=== PATIENT | male | born 1945 ===

== ENCOUNTER → 2019-06-02 17:36 | Outpatient (CLI) | payer MEDICARE ==
[2019-06-02 19:14] LABS: BASOPHILS 0.1 % (0-2); HEMATOCRIT 44.1 % (42.0-54.0); HEMOGLOBIN 14.8 g/dL (13.5-17.5); IMMATURE GRANULOCYTES 0.3 % (0-5); LYMPHOCYTES 17.2 % (15-50); MCH 30.7 pg (26.0-34.0); MCHC 33.6 g/dL (31.0-37.0); MCV 91.5 fL (80.0-100.0); MEAN PLATELET VOLUME 9.7 fL (7.4-10.4); MONOCYTES 10.4 % (2-11); PLATELET COUNT 308 10x3/uL (130-400); RBC 4.82 10x6/uL (4.20-6.10); RDW 13.4 % (11.5-14.5); WBC 7.6 10x3/uL (4.8-10.8)
[2019-06-04 11:10] LABS: IMMUNOGLOBULIN A 125 mg/dL (61-437); IMMUNOGLOBULIN G 829 mg/dL (700-1600); IMMUNOGLOBULIN M 84 mg/dL (15-143)
[2019-06-07 12:09] LABS: IMMUNOGLOBULIN E 973 IU/mL (6-495)
== END | disposition home or self-care (01) ==
LOC: D.LABREF 17:36
PROVIDERS: ATTEND Internal Medicine Pulmonary Disease
DX: J45.909 Unspecified asthma, uncomplicated (principal)

== ENCOUNTER → 2019-06-10 11:03 | Outpatient (CLI) | payer MEDICARE | END | disposition home or self-care (01) | LOC: D.RT 11:03 | PROVIDERS: ATTEND Internal Medicine Pulmonary Disease | DX: J45.909 Unspecified asthma, uncomplicated (principal) ==

== ENCOUNTER → 2020-10-11 09:20 | Outpatient (CLI) | payer MEDICARE ==
--- NOTE | ~2020-10-11 | ST ---
PATIENT:JORGE CROWLEY MEDICAL RECORD: [id number] SEX: M LOCATION:[facility] ORDER #: ADMISSION DATE: 10/11/20 AGE OF PATIENT: 75 REFERRING PHYSICIAN: INTERPRETING PHYSICIAN: SURJIT SHAH MD DATE OF SERVICE: 10/11/2020 PROCEDURE: Nuclear stress test. GATED: Normal. Normal wall motion, normal EF, calculated EF of 68%. SPECT IMAGING: SPECT imaging was performed. 1. Short axis view shows a reversible defect from the inferior base down to the mid inferior wall. This was confirmed with horizontal axis with a reversible defect from the inferior base down to mid inferior wall. 2. Horizontal axis: Horizontal axis shows good uptake along the lateral wall and septum. FINAL IMPRESSION: 1. Normal gated, normal wall motion, normal ejection fraction 68%. 2. Abnormal SPECT imaging. Reversible defect extending from the inferior base down to the mid inferior wall. Defect severity is moderate. Defect size is medium. FINAL IMPRESSION: This gentleman with new onset of anginal symptomatology. This scan is certainly worrisome for new onset of ischemic heart disease. Consider diagnostic angiography if clinically indicated. TRANSINT:[id number] Voice Confirmation ID: [id number] DOCUMENT ID: [id number] SURJIT SHAH MD CC: [id number] DICTATION DATE: 10/12/20 1252 DIVING BOARD ASSEMBLER: 10/13/20 0125 DEP CLI 10/11/20 [id number] [place] [address]
== END | disposition home or self-care (01) ==
LOC: D.HCCARDIO 09:20 → D.HCCECHO 11:30
PROVIDERS: ATTEND Internal Medicine Interventional Cardiology
DX: I20.9 Angina pectoris, unspecified (principal); R06.00 Dyspnea, unspecified

== ENCOUNTER 2020-10-25 11:05 | Day surgery (SDC) | payer MEDICARE ==
[~2020-10-25] VITALS: Ht 175.3 cm; Wt 99.5 kg
--- NOTE | ~2020-10-25 | HEMODYNAMI ---
PATIENT:JORGE CROWLEY MEDICAL RECORD: [id number] : 41 LOCATION:D.CAT ADMISSION DATE: 10/25/20 Generatedon:114:53 Patient name: JORGE CROWLEY Patient #: [id number] SSN: [id number] : 1945 Date of study: 10/25/2020 Page: Of Hemodynamic Procedure Report Patient Data Patient Demographics Procedure consent was obtained First Name: JORGE Gender: Male Last Name: KEO : 1945 [facility] Initial: RUDDY Age: 75 year(s) Patient #: [id number] Race: SSN: [id number] Additional ID: [id number] Contact details [address]: [address] [place] [address] State: [place] City: [place] Zip code: [address] Past Medical History Performed procedures and imaging results Date Procedure Procedure Results Comments 10/11/2020 Stress testing Positive->Intermediate with SPECT MPI risk Allergies: No known allergies Admission Admission Data Admission Date: 10/25/2020 Admission Time: 11:05 Arrival Date: 10/25/2020 Arrival Time: 0:00 Admit Source: Other Insurance Payor: Medicare [facility] #: [id number] Height (in.): 69 BSA: 2.15 (m2) Height (cm.): 175.26 BMI: 32.41 (kg/m2) Weight (lbs.): 219.45 Weight (kg.): 99.54 Lab Results Lab Result Date: 10/25/2020 Lab Result Time: 0:00 Biochemistry Name Units Result Min Max BUN mg/dl 14 --(--*-)-- 7 18 Creatinine mg/dl 1 --(--*-)-- 0.6 1.3 eGFR ml/min 76.81875 *-(----)-- 90 120 NONAFRICAN CBC Name Units Result Min Max Hematocrit % 39.6 -*(----)-- 42 54 Hemoglobin g/dl 12.5 *-(----)-- 13.5 17.5 Procedure Procedure Types Cath Procedure Diagnostic Procedure [facility] w/Coronaries Aortic Root Angiography Sedation Charges Moderate Sedation 25-39 minutes Procedure Description Procedure Date Procedure Date: 10/25/2020 Procedure Start Time: 14:27 Procedure End Time: 14:51 Procedure Staff Name Function Ulices Coto MD Performing Physician Temi Connelly RT Monitor Olivia Ng RT Scrub Bolivar Salter RN Nurse Procedure Data Cath Procedure Fluoroscopy Diagnostic fluoroscopy Total fluoroscopy Time: 5.7 time: 5.7 min min Diagnostic fluoroscopy Total fluoroscopy dose: dose: 1263 mGy 1263 mGy Contrast Material Contrast Material Type Amount (ml) Isovue 300 214 Entry Location Entry Primary Successful Side Size Upsize Upsize Entry Closure Moreira ccessful Closure Location (Fr) 1 (Fr) 2 (Fr) Remarks Device Remarks Radial Right 6 Fr Mechanical artery Short Compression Estimated blood loss: 5 ml Diagnostic catheters Device Type Used For End Catheter Placement DIAGNOSTIC [place] 110cm 5 Multi-vessel Fr catheter ([id number]) Angiography DIAGNOSTIC Yared 110cm Left Coronary 5Fr catheter (857255) Angiography DIAGNOSTIC Pigtail 5Fr LV Angiography catheter ([id number]) Procedure Complications No complications Procedure Medications Medication Administration Route Dosage Oxygen etCO2 Nasal cannula 2 l/min Lidocaine 2% added to field 20 0.9% NaCl I.V. 100 ml/hr Heparin Flush Bag added to field 2 bags (1000units/500ml NS) Radial Cocktail added to field 1 syringe (Verapamil 2mg/Nitro 400mcg/Heparin 1500units) Versed I.V. 2 mg Fentanyl I.V. 50 mcg Versed I.V. 1 mg Fentanyl I.V. 50 mcg Versed I.V. 1 mg Fentanyl I.V. 50 mcg Hemodynamics Rest BSA: 2.15 (m2) HGB: 12.5 (g/dl) O2 Consumption: Estimated: 240.94 (ml/min) O2 Co nsumption indexed: Estimated:112.07 (ml/min/m) Heart Rate: 63 (bpm) Pressure Samples Time Site Value (mmHg) Purpose Heart Use Rate(bpm) 14:33 LV 111/6,14 Snapshot 85 14:34 AO 113/68(86) Pullback 68 14:34 LV 110/20,26 Pullback 68 Gradients Valve Time Site 1 Site 2 Mean SEP/DFP Peak To Heart Use (mmHg) (sec/min) Peak Rate (mmHg) (bpm) Aortic 14:34 LV AO 0 5 0 68 110/20,26 113/68(86) Calculations Valve P-P Mean Valve Index Valve Source Name Gradient Area Flow (cm2) Aortic 0 0 0 0 Snapshots Pre Cath Intra NCS Post Cath Vital Signs Time Heart Resp SPO2 etCO2 NIBP (mmHg) Rhythm Pain Sedation Rate (ipm) (%) (mmHg) Status Level (bpm) 14:01:26 60 17 98 0 133/80(114) NSR 0 (11) 10(A) , No pain 14:05:44 61 11 97 0 132/81(114) NSR 0 (11) 10(A) , No pain 14:09:58 61 26 96 37.9 133/78(93) NSR 0 (11) 10(A) , No pain 14:15:06 66 17 94 0 113/79(105) NSR 0 (11) 10(A) , No pain 14:19:19 65 18 97 0 133/74(114) NSR 0 (11) 10(A) , No pain 14:24:24 63 17 97 43.2 126/74(119) NSR 0 (11) 9(A) , No pain 14:28:36 65 16 94 0 100/75(95) NSR 0 (11) 9(A) , No pain 14:33:35 132 13 96 41.7 125/67(102) NSR 0 (11) 9(A) , No pain 14:37:41 71 15 97 0 100/76(85) NSR 0 (11) 9(A) , No pain 14:41:47 67 12 97 0 119/82(110) NSR 0 (11) 10(A) , No pain 14:46:03 65 14 97 0 126/71(103) NSR 0 (11) 10(A) , No pain 14:50:27 69 10 96 24.2 94/69(77) NSR 0 (11) 10(A) , No pain Medications Time Medication Route Dose Verified Delivered Reason Notes Effectiveness by by 14:00:38 Oxygen etCO2 2 l/min Ulices Buffie for local Nasal Nnamdi Salter RN anesthetic cannula 14:00:55 Lidocaine 2% added 20ml Ulices Ulices for local to vial Nnamdi Coto MD anesthetic field 14:01:29 0.9% NaCl I.V. 100 Ulices Buffie Per ml/hr Nnamdi Salter RN physician 14:02:58 Heparin Flush added 2 bags Ulices Buffie used for Bag to Nnamdi Salter RN procedure (1000units/500ml field NS) 14:03:12 Radial Cocktail added 1 Ulices Ulices for (Verapamil to syringe Nnamdi Coto MD vasodilation 2mg/Nitro field 400mcg/Heparin 1500units) 14:17:19 Versed I.V. 2 mg Ulices Buffie for sedation Nnamdi Salter RN 14:17:25 Fentanyl I.V. 50 mcg Ulices Buffie for sedation Nnamdi Salter RN 14:24:33 Versed I.V. 1 mg Ulices Buffie for sedation Nnamdi Salter RN 14:24:37 Fentanyl I.V. 50 mcg Ulices Buffie for sedation Nnamdi Salter RN 14:28:36 Versed I.V. 1 mg Ulices Buffie for sedation Nnamdi Salter RN 14:28:39 Fentanyl I.V. 50 mcg Ulices Buffie for sedation Nnamdi Salter RN Procedure Log Time Note 13:10:28 Bolivar Salter RN sent for patient. Start room use. 13:10:37 Risk of blood transfusion: 0.3 13:14:44 Informed consent obtained and on chart 13:15:01 Diagnostic Cath Status : Elective 13:15:16 Arrival Date: 10/25/2020 12:00:00 AM 13:15:17 Admit Source: Other 13:15:20 Insurance Payor : Medicare 13:17:10 Patient Height : 69 inches 13:17:15 Patient Weight : 219.45 lbs 13:18:18 Patient allergic to No known allergies 13:19:42 Lab Result : BUN 14 mg/dl 13:19:42 Lab Result : eGFR NONAFRICAN 76.92864 ml/min 13:19:42 Lab Result : Hemoglobin 12.5 g/dl 13:19:42 Lab Result : Creatinine 1 mg/dl 13:19:42 Lab Result : Hematocrit 39.6 % 13:20:16 ACC Patient presents with Stable Angina CCS Anginal Class 2--Slight limitation of ordinary activity. 13:20:20 Procedure Status Elective Heart Cath (OP). 13:20:22 Time tracking: Regular hours (M-F 7:00 - 5:00) 13:20:28 Plan of Care:Hemodynamics will remain stable., Cardiac rhythm will remain stable., Comfort level will be maintained., Respiratory function will remain adequate., Patient/ family verbilizes understanding of procedure., Procedure tolerated without complication., Recovers from procedure without complications.. 13:20:36 H&P Date Dictated: 10/04/2020 Within 30 days and on chart.. 13:20:37 Pre-procedure instructions explained to patient. 13:20:37 Pre-op teaching completed and patient verbalized understanding. 13:20:39 Family unavailable. 13:20:40 Patient NPO since Midnight. 13:20:45 Lab results completed and on chart. 13:21:02 Stress Test: yes; abnormal INFERIOR 13:21:03 Alarms reviewed by R. N. 13:21:04 Sharps counted by scrub and verified by R.N. 14:00:17 Vital chart was started 14:00:38 Oxygen 2 l/min etCO2 Nasal cannula was administered by Bolivar Salter RN; for local anesthetic; Verbal order read back and verified. 14:00:55 Lidocaine 2% 20ml vial added to field was administered by Ulices Coto MD; for local anesthetic; Verbal order read back and verified. 14:01:29 0.9% NaCl 100 ml/hr I.V. was administered by Bolivar Salter RN; Per physician; Verbal order read back and verified. 14:02:58 Heparin Flush Bag (1000units/500ml NS) 2 bags added to field was administered by Bolivar Salter RN; used for procedure; Verbal order read back and verified. 14:03:12 Radial Cocktail (Verapamil 2mg/Nitro 400mcg/Heparin 1500units) 1 syringe added to field was administered by Ulices Coto MD; for vasodilation; Verbal order read back and verified. 14:04:16 Patient received from Pre/Post Procedure Room to [facility] 1 Alert and oriented. Tansferred to table in Supine position. 14:04:17 Warm blankets applied, and hortencia hugger turned on for patient comfort. 14:04:18 Correct patient and procedure confirmed by team. 14:04:19 ECG and BP/O2 sat monitors applied to patient. 14:04:20 Baseline sample Acquired. 14:04:24 Rhythm: sinus rhythm 14:04:26 Full Disclosure recording started 14:04:29 Is the patient allergic to Iodine/contrast media? No. 14:04:31 Was the patient premedicated? Yes 14:04:33 Is patient on blood thinner?No 14:04:35 Patient diabetic? No. 14:04:38 Previous problem with sedation/anesthesia? No ? 14:04:40 Snore? Yes 14:04:41 Sleep apnea? No 14:04:42 Deviated septum? No 14:04:43 Opens mouth fully? Yes 14:04:44 Sticks out tongue? Yes 14:04:52 Airway obstruction? Yes COPD ASTHMA 14:04:57 Dentures? Yes OUT 14:05:01 Pre procedure: right dorsailis pedis pulse 2+ Normal; easily identifiable; not easily obliterated 14:05:04 Pre procedure: left dorsailis pedis pulse 2+ Normal; easily identifiable; not easily obliterated 14:05:07 Modified Bhavesh's test Radial < 7 seconds 14:05:09 Patient pain scale 0/10 ?. 14:05:17 IV patent on arrival in left forearm with 0.9% NaCl at [facility]. 14:06:34 Risk of Mortality: 0.1 14:06:43 Risk of MAUREEN: 1.5 14:06:49 Right Radial & Right Groin area was prepped with chlora-prep and draped in sterile fashion 14:09:25 Physician arrived 14:09:25 --------ALL STOP TIME OUT------ 14:09:26 Final Timeout: patient, procedure, and site verified with staff and physician. All members of the team are in agreement. 14:09:27 Right Radial & Right Groin site verified by team. 14:09:31 Fire Safety Assessment: A--An alcohol-based skin anteseptic being used preoperatively., C--Open oxygen or nitrous oxide is being used., D--An ESU, laser, or fiber-optic light is being used. 14:09:34 Physical assessment completed. ASA score P 2 - A patient with mild systemic disease as per Ulices Coto MD. 14:09:51 2) 60-89 Mildly reduced kidney function, and other findings (as for stage 1) point to kidney disease. 14:10:11 Maximum allowable contrast dose (3.7 X eGFR X 0.75)214 ml. 14:10:16 Sedation plan: IV Moderate Sedation Medication:Versed, Fentanyl 14:17:19 Versed 2 mg I.V. was administered by Bolivar Salter RN; for sedation; Verbal order read back and verified. 14:17:25 Fentanyl 50 mcg I.V. was administered by Bolivar Salter RN; for sedation; Verbal order read back and verified. 14:21:12 Use device set Radial Dx or PCI 14:21:12 ACIST Syringe (94581) opened to sterile field. 14:21:13 Medline Cath Pack ([id number]) opened to sterile field. 14:21:13 Bag Decanter (2002S) opened to sterile field. 14:21:14 ACIST Hand Control (35126) opened to sterile field. 14:21:14 ACIST Manifold (58943) opened to sterile field. 14:21:14 Tegaderm 4 x 4 (1626W) opened to sterile field. 14:21:16 MBrace Wrist Support (989886412) opened to sterile field. 14:21:17 NEEDLE Cook 21G 4cm Radial (J90209) opened to sterile field. 14:21:19 EMERALD Guide Wire (438-694) opened to sterile field. 14:21:19 SHEATH 6FR RAIN (4649701) opened to sterile field. 14:24:33 Versed 1 mg I.V. was administered by Bolivar Salter RN; for sedation; Verbal order read back and verified. 14:24:37 Fentanyl 50 mcg I.V. was administered by Bolivar Salter RN; for sedation; Verbal order read back and verified. 14:27:52 Procedure started. 14:27:57 Local anesthetic to right radial artery with Lidocaine 2% by Ulices Coto MD.INITIAL ACCESS ONLY 14:28:36 Versed 1 mg I.V. was administered by Bolivar Salter RN; for sedation; Verbal order read back and verified. 14:28:39 Fentanyl 50 mcg I.V. was administered by Bolivar Salter RN; for sedation; Verbal order read back and verified. 14:31:10 A 6 Fr Short sheath was inserted into the Right Radial artery 14:31:17 A DIAGNOSTIC [place] 110cm 5 Fr catheter (889522) was advanced over the wire and used for Multi-vessel Angiography. 14:34:35 LV hemodynamics recorded. 14:34:36 LV gram done using ARITA 14:34:38 Injector settings: Ml/sec: 5, Volume: 15, 14:34:43 EF : 60 % 14:34:48 LCA angiography performed. 14:34:52 Injector settings: Ml/sec: 3, Volume: 6, 14:37:49 RCA angiography performed. 14:37:53 Injector settings: Ml/sec: 3, Volume: 6, 14:38:56 Catheter removed. 14:40:19 A DIAGNOSTIC [place]ared 110cm 5Fr catheter (693828) was advanced over the wire and used for Left Coronary Angiography. 14:42:15 LCA angiography performed. 14:42:19 Injector settings: Ml/sec: 3, Volume: 6, 14:43:50 Catheter removed. 14:44:09 A DIAGNOSTIC Pigtail 5Fr catheter ([id number]) was advanced over the wire and used for LV Angiography. 14:45:54 Aortic Root visualized 14:45:58 Injector settings: Ml/sec: 10, Volume: 20, 14:48:16 Catheter removed. 14:48:33 Sheath removed intact; hemostasis achieved with Mechanical Compression to the Right Radial artery. 14:49:15 Procedure ended.(Physican Out) 14:49:45 Fluoroscopy time 05.70 minutes. 14:49:49 Fluoroscopy dose: 1263 mGy 14:49:49 Flurop Dose total: 1263 14:49:55 Dose Area Product 53670 mGy/cm. 14:49:59 Contrast amount:Isovue 300 214ml. 14:50:01 Maximum allowable dose exceeded? No. 14:50:02 Sharps counted by scrub and verified by R.N. 14:50:05 Cleghorn band inflated with 13cc of air. 14:50:07 Insertion/operative site no bleeding no hematoma. 14:50:13 Post right radial artery:stable 14:50:15 Post Procedure Pulses reassessed and unchanged 14:50:17 Post procedure rhythm: unchanged. 14:50:20 Estimated blood loss: 5 ml 14:50:22 Post procedure instruction explained to patient.Patient verbalizes understanding. 14:50:22 Patient needs reinforcement of post procedure teaching. 14:51:00 Procedure type changed to Cath procedure, Diagnostic procedure, LHC, LHC w/Coronaries, Aortic Root Angiography, Sedation Charges, Moderate Sedation 25-39 minutes 14:51:02 Procedure and supply charges have been captured, reviewed, submitted and are correct. 14:51:06 Procedure Complication : No complications 14:51:08 Vital chart was stopped 14:51:13 [facility] Findings: MVD- CABG consult 14:51:16 Operative report dictated upon procedure completion. 14:51:16 See physician's report for complete and final results. 14:51:20 Report given to Pre/Post Procedure Room. 14:51:23 Patient transfered to Pre/Post Procedure Room with Stretcher. 14:51:25 Procedure ended. 14:51:25 Full Disclosure recording stopped 14:51:29 End room use (Document Last) 14:52:12 ZEPHYR LARGE TR BAND (746803) opened to sterile field. 14:52:37 ZEPHYR REGULAR TR BAND (077545) opened to sterile field. Device Usage Item Name Manufacture Quantity Catalog Hospital Part Current Minima l Lot# / Number Charge Number Stock Stock Serial# Code ACIST Acist 1 79501 860911 080538 [id number] 20 Syringe Medical (87380) Systems Inc Medline Medline 1 [id number] 809100 35020 803602 5 Cath Pack ([id number]) Bag Microtek 1 2001S 792489 01227 373918 5 Decanter Medical Inc. () ACIST Hand Acist 1 29648 587458 537868 345795 5 Control Medical (37782) Systems Inc ACIST Acist 1 94553 484033 360955 812268 5 Manifold Medical (83021) Systems Inc Tegaderm 4 3M 1 1626W 783736 042409 493847 5 x 4 (1626W) MBrace Advanced 1 140-0250-00 964342 76637 750496 5 Wrist Vascular Support Dynamics ([id number]) NEEDLE Cook Cook Medical 1 F43287 859553 032904 304920 5 21G 4cm Radial (I54103) EMERALD Cardinal 1 502-455 263179 859092 799237 5 Guide Wire [facility] (502-455) SHEATH 6FR Cardinal [address] 9825[address] 218625 69[address]70 149[address] 5 [facility] (2759623) DIAGNOSTIC Terumo 1 40-5013 312178 482883 019522 5 [place] 110cm 5 Fr catheter (098148) DIAGNOSTIC Terumo 1 40-2739 720032 243088 743339 5 Yared 110cm 5Fr catheter (385394) DIAGNOSTIC Cardinal 1 [id number] 623542 810783 548173 5 Pigtail 5Fr Health catheter (131157A) ZEPHYR Cardinal 1 642563 251780 9309634 255930 5 LARGE TR Health BAND (474816) ZEPHYR Cardinal 1 486778 844238 6731200 269922 5 REGULAR TR Health BAND (271581) Signature Audit [place] Stage Time Signature Unsigned Intra-Procedure 10/25/2020 Temi Connelly 2:52:37 PM RT(R) Intra-Procedure 10/25/2020 Bolivar Salter RN 2:53:16 PM Intra-Procedure 10/25/2020 Ulices Coto MD 2:53:43 PM [facility] [address] [place] [address]
[2020-10-25 12:33] LABS: BASOPHILS 0.1 % (0-2); EOSINOPHILS 3.9 % (0-7); HEMATOCRIT 39.6 % (42.0-54.0); HEMOGLOBIN 12.5 g/dL (13.5-17.5); IMMATURE GRANULOCYTES 0.3 % (0-5); LYMPHOCYTE ABS# 1.43 10x3/uL (1.32-3.57); LYMPHOCYTES 18.5 % (15-50); MCH 24.5 pg (26.0-34.0); MCHC 31.6 g/dL (31.0-37.0); MCV 77.6 fL (80.0-100.0); MONOCYTES 8.2 % (2-11); NEUTROPHIL ABS# 5.33 10x3/uL (1.78-5.38); PLATELET COUNT 308 10x3/uL (130-400); WBC 7.7 10x3/uL (4.8-10.8)
[2020-10-25 12:37] VITALS: BP 177/74; Ht 175.3 cm; Wt 99.5 kg
[2020-10-25] MEDS ORDERED: SINGULAIR10 MG PO (12:44)
[2020-10-25] MEDS ORDERED: VENTOLIN HFA [SP8 GM INH (12:44)
[2020-10-25] MEDS ORDERED: TRELEGY ELLIPT1 EACH INH (12:44)
[2020-10-25] MEDS ORDERED: OMEPRAZOLE20 M1 PO (12:45)
[2020-10-25] MEDS ORDERED: FLUTICASONE PRO16 GM NASAL (12:45)
[2020-10-25] MEDS ORDERED: VASOTEC10 MG PO (12:45)
[2020-10-25] MEDS ORDERED: ZOCOR10 MG PO (12:46)
[2020-10-25] MEDS ORDERED: VITAMIN D-32000 UNIT PO (12:47)
[2020-10-25] MEDS ORDERED: ZINC-220220 MG PO (12:47)
[2020-10-25] MEDS ORDERED: VITAMIN C500 M1 PO (12:47)
[2020-10-25 13:04] LABS: ALT (SGPT) 21 U/L (10-68); CALC OSMOLALITY 279 mosm/kg (275-300); CALCIUM 9.3 mg/dL (8.5-10.1); CARBON DIOXIDE 24.1 mmol/L (21.0-32.0); CHLORIDE - SERUM 106 mmol/L (98-107); CHOL - HDL RATIO 2.7 ratio (2.3-4.9); CHOLESTEROL, TOTAL 134 mg/dL (0-200); GLUCOSE 93 mg/dL (74-106); HDL CHOLESTEROL 50 mg/dL (32-96); LDL CHOLESTEROL 66 mg/dL (0-100); LDL-HDL RATIO 1.3 ratio (1.5-3.5); POTASSIUM - SERUM 4.2 mmol/L (3.5-5.1); SODIUM 140 mmol/L (136-145); TRIGLYCERIDE 91 mg/dL (30-200); UREA NITROGEN 14 mg/dL (7-18); eGFR NON AFRICAN AMERICAN 77 mL/min (90-120)
--- NOTE | 2020-10-25 15:04 | NUR ---
ARRIVES TO ROOM 4 VIA STRETCHER S/P HEART CATH. SEE COMMERCIAL SALES REPRESENTATIVE. MONITORS PLACED AND ALARMS ON. DENIES PAIN OR NEEDS, UPDATE GIVEN ON PLAN OF CARE TO PT AND SPOUSE, IV INFUSING PER ORDERS, CALL LIGHT WITHIN REACH.
--- NOTE | 2020-10-25 15:19 | NUR ---
EYES CLOSED AROUSES EASILY, VSS, SR, RIGHT WRIST WITH ZBAND IN PLACE NO OOZING OR BLEEDING NOTED, NO PALPABLE HEMATOMA, BRACHIAL AND RADIAL PULSE PALPABLE, CAP REFILL WNL, DENIES PAIN OR NEEDS, IV INFUSING PER ORDERS, SPOUSE AT BEDSIDE, CALL LIGHT WITHIN REACH, NO BATHROOM NEEDS AT PRESENT
--- NOTE | 2020-10-25 15:34 | NUR ---
SEMI FOWLERS POSITION, VSS, SR, RIGHT WRIST STABLE WITH ZBAND IN PLACE NO BLEEDING OR OOZING NOTED , NO PALPABLE HEMATOMA, BRACHIAL AND RADIAL PULSE PALPABLE, CAP REFILL WNL , MOVES ALL DIGITS, DENIES PAIN OR NEEDS, PO FLUIDS AND SANDWICH BOX GIVEN, SPOUSE AT BEDSIDE, IV INFUSING PER ORDERS, CALL LIGHT WITHIN REACH
--- NOTE | 2020-10-25 15:49 | NUR ---
SITTING UP VISITING WITH SPOUSE, VSS, SR, RIGHT WRIST STABLE ZBAND IN PLACE, NO OOZING OR BLEEDING NOTED, RADIAL PULSE PALPABLE, CAP REFILL WNL, IV INFUSING PER ORDERS, DENIES PAIN OR NEEDS, CALL LIGHT WITHIN REACH , NO BATHROOM NEEDS
--- NOTE | 2020-10-25 16:00 | NUR ---
3CC AIR REMOVED FROM ZBAND NO BLEEDING OR OOZING NOTED, NO PALPABLE HEMATOMA, RADIAL PULSE PALPABLE, CAP REFILL WNL, MOVES DIGITS, DENIES PAIN OR NEEDS
--- NOTE | 2020-10-25 16:15 | NUR ---
DR ROY TO BEDSIDE TO REVIEW FINDING WITH PT AND SPOUSE. NO NEW ORDERS RECIEVED.
--- NOTE | 2020-10-25 16:45 | NUR ---
PT RESTING QUIETLY, VSS, SR, SATS 98% RA, DENIES PAIN OR NEEDS, RIGHT WRIST WITH AIR REMOVED FROM ZBAND, NO OOZING OR BLEEDING , RADIAL AND BRACHIAL PULSE PALPABLE, CAP REFILL WNL, MOVES ALL DIGITS, DISCHARGE TEACHING WITH PT AND SPOUSE COMPLETED PT AND SPOUSE VERBALIZED UNDERSTANDING, CALL LIGHT WITHIN REACH. DENIES BATHROOM NEEDS
--- NOTE | 2020-10-25 17:00 | NUR ---
IV REMOVED FROM LT FOREARM CATHETER INTACT 2X2 DRESSING APPLIED, PT AMBULATES TO BATHROOM VOIDS WITHOUT DIFFICULTY. OPSITE PLACED TO RIGHT WRIST, NO BLEEDING OR OOZING NOTED, RADIAL PULSE PALPABLE, CAP REFILL WNL , MOVES ALL DIGITS, DENIES PAIN OR NEEDS. QUESTIONS AND CONCERNS ADDRESSED. VSS, SR PER MONITORS.
--- NOTE | 2020-10-25 17:20 | NUR ---
PT DISCHARGED PER ORDERS, TAKEN TO FAMILY CAR VIA WHEELCHAIR, PT HAS NO PAIN OR NEEDS AT TIME OF DISCHARGE
== END 2020-10-25 17:20 | disposition home or self-care (01) ==
LOC: D.CATH 11:05
PROVIDERS: ATTEND Internal Medicine Cardiovascular Disease
DX: R94.39 Abnormal result of other cardiovascular function study (principal); I20.9 Angina pectoris, unspecified; R07.9 Chest pain, unspecified; R06.00 Dyspnea, unspecified

== ENCOUNTER 2020-11-03 05:03 | Inpatient (IN) | payer MEDICARE ==
[2020-11-01 11:03] LABS: BASOPHILS 0.1 % (0-2); EOSINOPHILS 4.9 % (0-7); HEMATOCRIT 39.6 % (42.0-54.0); HEMOGLOBIN 12.3 g/dL (13.5-17.5); IMMATURE GRANULOCYTES 0.1 % (0-5); LYMPHOCYTE ABS# 1.15 10x3/uL (1.32-3.57); LYMPHOCYTES 14.2 % (15-50); MCH 24.4 pg (26.0-34.0); MCHC 31.1 g/dL (31.0-37.0); MCV 78.4 fL (80.0-100.0); MEAN PLATELET VOLUME 9.9 fL (7.4-10.4); MONOCYTES 8.9 % (2-11); NEUTROPHIL ABS# 5.82 10x3/uL (1.78-5.38); NEUTROPHILS 71.8 % (40-80); PLATELET COUNT 319 10x3/uL (130-400); RBC 5.05 10x6/uL (4.20-6.10); RDW 15.9 % (11.5-14.5); WBC 8.1 10x3/uL (4.8-10.8)
[2020-11-01 11:05] LABS: INR 1.08 (0.85-1.17); PROTIME 12.9 SECONDS (11.6-15.0)
[2020-11-01 11:19] LABS: ALBUMIN 3.8 g/dL (3.4-5.0); ALKALINE PHOSPHATASE 85 U/L (30-120); ALT (SGPT) 21 U/L (10-68); BILIRUBIN - TOTAL 0.55 mg/dL (0.2-1.3); CALC OSMOLALITY 277 mosm/kg (275-300); CALCIUM 9.1 mg/dL (8.5-10.1); CARBON DIOXIDE 27.9 mmol/L (21.0-32.0); CHLORIDE - SERUM 104 mmol/L (98-107); CHOLESTEROL, TOTAL 123 mg/dL (0-200); GLUCOSE 96 mg/dL (74-106); PHOSPHOROUS 3.9 mg/dL (2.5-4.9); PRO BNP 64 pg/mL (0-450); PROTEIN - SERUM 7.4 g/dL (6.4-8.2); SODIUM 139 mmol/L (136-145); T4 THYROXIN - FREE 0.83 ng/dL (0.76-1.46); UREA NITROGEN 12 mg/dL (7-18); URIC ACID 6.1 mg/dL (2.6-7.2); eGFR NON AFRICAN AMERICAN 77 mL/min (90-120)
[2020-11-01 12:37] LABS: BILIRUBIN NEGATIVE (NEGATIVE); KETONE NEGATIVE (NEGATIVE); NITRITE NEGATIVE (NEGATIVE); UROBILINOGEN NORMAL mg/dL (< 2)
[2020-11-03] VITALS (24 sets, daily range): BP systolic 92–147; BP diastolic 39–68; BMI 32.5; BMI 35.0
[~2020-11-03] VITALS: Ht 175.3 cm; Wt 102.8 kg
[~2020-11-03 05:03] MED LIST: BAYER CHEWABLE81 MG PO; FISH OIL 1,0001 CA1 PO; FLUTICASONE PRO16 GM NASAL; OMEPRAZOLE20 M1 PO; SINGULAIR10 MG PO; TRELEGY ELLIPT1 EACH INH; VASOTEC10 MG PO; VENTOLIN HFA [SP8 GM INH; VITAMIN C500 M1 PO; VITAMIN D-32000 UNIT PO; VITAMIN D325 MC1 PO; ZINC-220220 MG PO; ZOCOR10 MG PO
[2020-11-03] MEDS ORDERED: ZINC50 MG (05:24)
--- NOTE | 2020-11-03 07:48 | NUR ---
CVL AND ARTERIAL LINE PLACED BY ANESTHESIA, YOSEF.
[2020-11-03 08:09] LABS: APTT 44.7 SECONDS (22.8-39.4); INR 1.25 (0.85-1.17); PROTIME 14.6 SECONDS (11.6-15.0)
--- NOTE | 2020-11-03 15:30 | NUR ---
UP TO CHAIR WITHOUT DIFFICULTY.
--- NOTE | 2020-11-03 15:34 | OP ---
PATIENT NAME: JORGE CROWLEY MEDICAL RECORD: [id number] :41 LOCATION:[facility] D.CV01 ADMISSION DATE:11/03/20 SURGEON: SEAN FARRIS MD DATE OF OPERATION: 11/03/2020 SURGEON: Sean Farris MD PROCEDURE: Right carotid endarterectomy. PREOPERATIVE DIAGNOSES: Coronary artery disease, bilateral carotid stenosis. POSTOPERATIVE DIAGNOSES: Coronary artery disease, bilateral carotid stenosis. ANESTHESIA: General endotracheal anesthesia. ESTIMATED BLOOD LOSS: 50 mL. COMPLICATIONS: None. SPECIMENS: Plaque. CONDITION: Stable. DISPOSITION: CV ICU. OPERATIVE FINDINGS: 1. Discrete severely calcified plaque in the carotid bulb, proximal internal carotid and extending up the external carotid, which was a large vessel. The plaque feathered well distally and the arteriotomy was closed with a CorMatrix patch closure. 2. Neurologically intact to the ICU, no evidence of coronary ischemia in the perioperative period. INDICATION: Severe right and left carotid artery stenosis with severe coronary artery disease. PROCEDURE IN DETAIL: The patient was brought to the operative suite. General anesthesia was obtained. The patient was prepped and draped. An oblique incision was made to the right neck, taken down through the subcutaneous tissue. Large facial venous branch were divided between ligatures and suture ligatures. The common carotid artery was dissected out and encircled. The external carotid and thyroid branches were encircled with vessel loops. The hypoglossal nerve was identified and kept out of harm's way. Distal internal carotid was dissected out. Heparin was given. After the heparin had circulated, back bleeding on the internal carotid was controlled with a bulldog clamp. Backbleeding on the external carotid and thyroid branch were controlled with vessel loops and inflow was controlled with a vascular clamp. EEG and cerebral oximetry remained normal and after 2 minutes arteriotomy was made in the common carotid artery and taken out through the region of dense calcification into a relatively normal region of internal carotid. The plaque was divided in the common carotid artery. Eversion endarterectomy of the external carotid was performed and the plaque feathered well distally. Thorough irrigation was undertaken. All bits of loose debris were removed. The patch was fashioned to the appropriate size and sutured along the edge of the arteriotomy. Prior to completing the anastomosis, backbleeding was allowed from all 3 major vessels OPERATIVE REPORT [id number] BLACK,JORGE RUDDY and the endarterectomy bed was again flushed. Anastomosis was completed and flow was restored, first to the external carotid and then to the internal carotid. A 2-3 patch sutures for hemostasis were used. Protamine was given. Thorough antibiotic irrigation was performed. A drain was placed through a separate stab wound. Neck was closed in 3 layers including Dermabond on the skin. Anesthesia was reversed. The patient neurologically intact to the ICU. TRANSINT:[id number] Voice Confirmation ID: [id number] DOCUMENT ID: [id number] SEAN FARRIS MD at 1534 CC: ARABELLA ROY M.D. and ULZMA DELVALLE [id number] DICTATION DATE: 11/03/20 1022 WWE WRESTLER: 11/03/20 1348 ADM IN [facility] [address] [place] [address]
[2020-11-04] VITALS (25 sets, daily range): BP systolic 102–176; BP diastolic 43–77
[2020-11-04 05:14] LABS: BASOPHILS 0.1 % (0-2); EOSINOPHILS 2.5 % (0-7); HEMATOCRIT 31.4 % (42.0-54.0); HEMOGLOBIN 9.8 g/dL (13.5-17.5); IMMATURE GRANULOCYTES 0.1 % (0-5); LYMPHOCYTE ABS# 0.92 10x3/uL (1.32-3.57); MCH 24.6 pg (26.0-34.0); MCHC 31.2 g/dL (31.0-37.0); MCV 78.7 fL (80.0-100.0); MEAN PLATELET VOLUME 9.7 fL (7.4-10.4); MONOCYTES 11.4 % (2-11); NEUTROPHIL ABS# 6.23 10x3/uL (1.78-5.38); NEUTROPHILS 74.9 % (40-80); RBC 3.99 10x6/uL (4.20-6.10); RDW 16.1 % (11.5-14.5); WBC 8.3 10x3/uL (4.8-10.8)
[2020-11-04 05:19] LABS: PLATELET COUNT 251 10x3/uL (130-400)
[2020-11-04 05:27] LABS: CALC OSMOLALITY 278 mosm/kg (275-300); CALCIUM 8.4 mg/dL (8.5-10.1); CARBON DIOXIDE 25.1 mmol/L (21.0-32.0); CHLORIDE - SERUM 105 mmol/L (98-107); GLUCOSE 95 mg/dL (74-106); SODIUM 139 mmol/L (136-145); UREA NITROGEN 14 mg/dL (7-18); eGFR NON AFRICAN AMERICAN 77 mL/min (90-120)
--- NOTE | 2020-11-04 12:24 | NUR ---
0900: KUMAR DC'D. 1100: R RADIAL ARTERIAL LINE DC'D. MANUAL PRESSURE HELD X 5 MIN. SITE DRESSED WITH 2X2 AND TEGADERM. 1115: R CHEST/NECK ARMIN DC'D.
[2020-11-05] VITALS (26 sets, daily range): BP systolic 109–163; BP diastolic 37–88
[2020-11-05 04:32] LABS: BASOPHILS 0.2 % (0-2); EOSINOPHILS 1.2 % (0-7); HEMOGLOBIN 10.3 g/dL (13.5-17.5); IMMATURE GRANULOCYTES 0.2 % (0-5); LYMPHOCYTE ABS# 1.13 10x3/uL (1.32-3.57); LYMPHOCYTES 10.4 % (15-50); MCH 24.3 pg (26.0-34.0); MCHC 31.2 g/dL (31.0-37.0); MEAN PLATELET VOLUME 9.4 fL (7.4-10.4); MONOCYTES 13.7 % (2-11); NEUTROPHIL ABS# 8.12 10x3/uL (1.78-5.38); NEUTROPHILS 74.3 % (40-80); PLATELET COUNT 268 10x3/uL (130-400); RBC 4.23 10x6/uL (4.20-6.10); RDW 15.9 % (11.5-14.5)
[2020-11-05 04:33] LABS: WBC 10.9 10x3/uL (4.8-10.8)
[2020-11-05 05:00] LABS: CALC OSMOLALITY 275 mosm/kg (275-300); CALCIUM 8.4 mg/dL (8.5-10.1); CARBON DIOXIDE 24.3 mmol/L (21.0-32.0); CHLORIDE - SERUM 104 mmol/L (98-107); GLUCOSE 115 mg/dL (74-106); POTASSIUM - SERUM 3.6 mmol/L (3.5-5.1); SODIUM 137 mmol/L (136-145); UREA NITROGEN 14 mg/dL (7-18); eGFR NON AFRICAN AMERICAN 77 mL/min (90-120)
--- NOTE | 2020-11-05 12:53 | NUR ---
1030: DR. FARRIS HERE. DISCUSSED WITH PATIENT AND ABOUT DOING CABG IN THE AM. PROCEDURE EXPLAINED AND PATIENT AND IN AGREEMENT TO DO SURGERY.
--- NOTE | 2020-11-05 18:05 | NUR ---
1700: DR. JEFF NOTIFIED OF PLANS FOR CABG IN AM.
[2020-11-05 19:03] LABS: ALBUMIN 2.9 g/dL (3.4-5.0); ANION GAP 15.6 mmol/L (8-16); BILIRUBIN - TOTAL 0.54 mg/dL (0.2-1.3); CALCIUM 8.5 mg/dL (8.5-10.1); CARBON DIOXIDE 23.3 mmol/L (21.0-32.0); CREATININE - SERUM 1.1 mg/dL (0.6-1.3); PHOSPHOROUS 3.4 mg/dL (2.5-4.9); POTASSIUM - SERUM 3.9 mmol/L (3.5-5.1); PROTEIN - SERUM 6.4 g/dL (6.4-8.2)
--- NOTE | 2020-11-05 22:33 | NUR ---
PT CLIPPED AND CHG BATH GIVEN. COMPLETE LINEN CHANGE PROVIDED. SBP GREATER THAN 150 AND PRN APRESSOLINE GIVEN.
[2020-11-06] VITALS (40 sets, daily range): BP systolic 90–154; BP diastolic 45–77; Ht 175.3 cm; Wt 102.8 kg
--- NOTE | 2020-11-06 03:07 | NUR ---
PT UP TO TOILET, URINE ONLY NOTED.
[2020-11-06 05:28] LABS: CALC OSMOLALITY 268 mosm/kg (275-300); CALCIUM 8.6 mg/dL (8.5-10.1); CARBON DIOXIDE 24.1 mmol/L (21.0-32.0); CHLORIDE - SERUM 102 mmol/L (98-107); GLUCOSE 109 mg/dL (74-106); POTASSIUM - SERUM 3.8 mmol/L (3.5-5.1); SODIUM 134 mmol/L (136-145); UREA NITROGEN 12 mg/dL (7-18); eGFR NON AFRICAN AMERICAN 77 mL/min (90-120)
--- NOTE | 2020-11-06 05:29 | NUR ---
PT PREPED PER ORDER.
[2020-11-06 05:38] LABS: BASOPHILS 0.1 % (0-2); EOSINOPHILS 1.4 % (0-7); HEMATOCRIT 32.4 % (42.0-54.0); HEMOGLOBIN 10.2 g/dL (13.5-17.5); IMMATURE GRANULOCYTES 0.3 % (0-5); LYMPHOCYTE ABS# 1.02 10x3/uL (1.32-3.57); LYMPHOCYTES 9.6 % (15-50); MCH 24.6 pg (26.0-34.0); MCHC 31.5 g/dL (31.0-37.0); MCV 78.3 fL (80.0-100.0); MEAN PLATELET VOLUME 9.8 fL (7.4-10.4); NEUTROPHIL ABS# 7.79 10x3/uL (1.78-5.38); NEUTROPHILS 73.6 % (40-80); PLATELET COUNT 290 10x3/uL (130-400); RBC 4.14 10x6/uL (4.20-6.10); RDW 16.1 % (11.5-14.5); WBC 10.6 10x3/uL (4.8-10.8)
--- NOTE | 2020-11-06 06:54 | NUR ---
PT OFF UNIT TO OR VIA BED WITH OR STAFF.
--- NOTE | 2020-11-06 07:49 | NUR ---
ARTER[place] PL[place] [facility] [place] OP, YOSEF.
[2020-11-06 12:07] LABS: PROTIME > 120.0 SECONDS (11.6-15.0)
[2020-11-06 12:08] LABS: APTT > 200.0 SECONDS (22.8-39.4)
[2020-11-06 12:28] LABS: BASOPHILS 0 % (0-2); EOSINOPHILS 0.2 % (0-7); HEMATOCRIT 28.8 % (42.0-54.0); HEMOGLOBIN 9.1 g/dL (13.5-17.5); IMMATURE GRANULOCYTES 0.3 % (0-5); LYMPHOCYTE ABS# 0.94 10x3/uL (1.32-3.57); LYMPHOCYTES 3.6 % (15-50); MCH 25.1 pg (26.0-34.0); MCHC 31.6 g/dL (31.0-37.0); MCV 79.6 fL (80.0-100.0); MEAN PLATELET VOLUME 9.4 fL (7.4-10.4); MONOCYTES 8.4 % (2-11); NEUTROPHIL ABS# 22.98 10x3/uL (1.78-5.38); NEUTROPHILS 87.5 % (40-80); PLATELET COUNT 243 10x3/uL (130-400); RBC 3.62 10x6/uL (4.20-6.10); RDW 15.9 % (11.5-14.5); WBC 26.3 10x3/uL (4.8-10.8)
[2020-11-06 12:36] LABS: ANION GAP 14.1 mmol/L (8-16); CALCIUM 8.6 mg/dL (8.5-10.1); CARBON DIOXIDE 25.2 mmol/L (21.0-32.0); CREATININE - SERUM 1.2 mg/dL (0.6-1.3); MAGNESIUM - SERUM 2.4 mg/dL (1.8-2.4); POTASSIUM - SERUM 4.3 mmol/L (3.5-5.1)
[2020-11-06 12:45] LABS: INR 1.41 (0.85-1.17)
[2020-11-06 12:52] LABS: APTT 35.3 SECONDS (22.8-39.4)
--- NOTE | 2020-11-06 13:50 | NUR ---
1215 PT RECIEVED TO ROOM SEDATED FROM OR ETT SECURED AND PLACED ON VENT BY RT, L SUBCLAVIAN CVL DRESSING CDI, R ART LINE ZEROED, GOOD WAVEFORM, WRIST PROTECTOR IN PLACE, MIDSTERNAL DRESSING CDI, SUBSTERNAL TPM WIRES, TPM VVI80 VMA 10 CTX2 Y'D TOGETHER 20CM SUCTION, BLOODY DRAINAGE, R AND L CHELA DRAINS COMPRESSED, KUMAR DRAINING YELLOW URINE, TEDS/SCDS ON LLE, RLE WITH COBAN FROM GROIN TO ANKLE ABGS, PT INR AND PLATELETS CALLLED TO DR FARRIS ALONG WITH CT OUTPUT, ORDERS TO INCREASE VENT RATE , RT NOTIFIED, ORDERS TO KEEP SYSTOLIC BP LESS THAN 120.
--- NOTE | 2020-11-06 15:46 | NUR ---
DR FARRIS IN ROOM, TPM TURNED OFF
--- NOTE | 2020-11-06 16:13 | NUR ---
[address] FARRIS
--- NOTE | 2020-11-06 21:17 | NUR ---
Pt resting in bed and has been repositioned for comfort, his family called to check on him and they were updated. Pt is trying to rest, but is having trouble getting comfortable. The Pt has been given two cups of water per Pt request and took his PM pills with no problem. Assessment and vitals per flow sheet, call light in reach, bed in low position.
[2020-11-07] VITALS (24 sets, daily range): BP systolic 96–150; BP diastolic 37–83
[2020-11-07 06:35] LABS: ALBUMIN 2.8 g/dL (3.4-5.0); BILIRUBIN - TOTAL 0.76 mg/dL (0.2-1.3); CALCIUM 8.3 mg/dL (8.5-10.1); CARBON DIOXIDE 26.4 mmol/L (21.0-32.0); MAGNESIUM - SERUM 2.3 mg/dL (1.8-2.4); PROTEIN - SERUM 6.2 g/dL (6.4-8.2)
[2020-11-07 06:36] LABS: ANION GAP 15.6 mmol/L (8-16); CREATININE - SERUM 1.6 mg/dL (0.6-1.3); PHOSPHOROUS 5.2 mg/dL (2.5-4.9)
--- NOTE | 2020-11-07 07:38 | OP ---
PATIENT NAME: JORGE CROWLEY MEDICAL RECORD: [id number] :41 LOCATION:.[facility] D.CV01 ADMISSION DATE:11/03/20 SURGEON: SEAN FARRIS MD DATE OF OPERATION: 11/06/2020 SURGEON: Sean Farris MD PROCEDURE PERFORMED: 1. Coronary artery bypass graft times 3 (left internal mammary to LAD, reverse saphenous vein graft from aorta to obtuse marginal, aorta to right coronary artery). 2. Endoscopic saphenous vein harvest. 3. Excision of sebaceous cyst, anterior chest. PREOPERATIVE DIAGNOSES: Coronary artery disease, carotid stenosis and sebaceous cyst. POSTOPERATIVE DIAGNOSES: Coronary artery disease, carotid stenosis and sebaceous cyst. ANESTHESIA: General endotracheal anesthesia. ESTIMATED BLOOD LOSS: Total cardiopulmonary bypass with Cell Saver retransfusion, 2 packed red blood cells, 2 FFP, 1 platelets. COMPLICATIONS: None. SPECIMENS: Sebaceous cyst, left internal mammary artery lymph node frozen section indeterminate. CONDITION: Stable. DISPOSITION: ICU. OPERATIVE FINDINGS: 1. Good quality greater saphenous vein, right lower extremity. 2. Sebaceous cyst above the lower sternum and xiphoid that was very near the skin requiring excision of a small portion of the skin. This area was later closed with interrupted nylon sutures and undermined to prevent tension. 3. Good quality left internal mammary artery. The LAD was a 2.0 mm vessel with diffuse disease. 4. The patient had a relatively large heart. 5. Obtuse marginal 2.5 mm. 6. The posterior descending artery was small. The right coronary artery was 2.0 mm with severe disease, but a 1.5 mm probe passed distally to the bifurcation. OPERATIVE INDICATION: Coronary artery disease and carotid stenosis. PROCEDURE IN DETAIL: The patient was brought to the operative suite. General anesthesia was obtained, the patient was prepped and draped. Greater saphenous vein harvested from the right lower extremity utilizing endoscopic technique. Side branches were divided with electrocautery. Vessels proximally and distally removed. The side branches were tied and thin sites were oversewn. The leg was later irrigated and closed in 2 layers. OPERATIVE REPORT [id number] JORGE CROWLEY Median sternotomy incision was made as the sebaceous cyst overlying the lower part of the incision it was ellipsed out intact and had no evidence of infection or discrete skin connection, although the overlying skin was excised and was sent for permanent pathology. The area was then undermined both sides so that later the skin and subcutaneous tissue could easily be closed without tension. The sternum was divided with a saw. The left hemisternum was elevated and the left pleural cavity was entered. Left internal mammary artery and vein was taken down as a pedicle graft. Sternal retractor was placed. Pericardium was opened. Heparin was given. Aorta was cannulated. Dual stage venous cannula was inserted. Internal mammary clipped distally and made ready for anastomosis. Activated clotting time was appropriately elevated. The patient was placed on cardiopulmonary bypass. Sites for distal anastomoses were selected. The antegrade cardioplegia cannula was inserted. The patient was cooled. Crossclamp was placed. Cardioplegia given antegrade and this was repeated at 15- to 20-minute intervals including down the completed vein grafts. Distal anastomosis was performed in standard technique. Proximal anastomosis with single cross-clamp technique. Deairing the root by placing the patient in Trendelenburg position, removing the cross clamp, deairing the root, tying the proximal anastomoses, deairing the vein grafts and restoring the flow. Proximal and distal anastomotic sites inspected for bleeding. A single suture at the right coronary distal and the right coronary proximal. The patient resumed a spontaneous rhythm, but was bradycardic; therefore atrial and ventricular pacing wires were placed and the patient was paced atrially, fully rewarmed and weaned from cardiopulmonary bypass and was stable. The patient was decannulated. Cannulation sites were oversewn. Protamine was given. Thorough irrigation was undertaken. The grafts lay appropriately. Left chest was evacuated and irrigated, tip of one drain in the right chest to the apex and one in the left chest, pericardial fat loosely reapproximated in the midline. The sternum was closed with wires. Fascia was closed. Subcutaneous tissue was closed. Skin was closed. Dermabond was placed. The needle and sponge counts reported correct. The patient was taken to the ICU in stable condition. TRANSINT:[id number] Voice Confirmation ID: [id number] DOCUMENT ID: [id number] SEAN FARRIS MD at 0738 CC: ARABELLA ROY M.D. and LUZMA DELVALLE [id number] DICTATION DATE: 11/06/20 1624 ZIGZAG TUNNEL ELASTIC OPERATOR: 11/07/20 0121 ADM IN [facility] [address] [id number]
[2020-11-07 07:55] LABS: BASOPHILS 0.1 % (0-2); EOSINOPHILS 0 % (0-7); HEMATOCRIT 26.7 % (42.0-54.0); HEMOGLOBIN 8.4 g/dL (13.5-17.5); IMMATURE GRANULOCYTES 0.3 % (0-5); LYMPHOCYTE ABS# 0.78 10x3/uL (1.32-3.57); LYMPHOCYTES 4.6 % (15-50); MCH 25.5 pg (26.0-34.0); MCHC 31.5 g/dL (31.0-37.0); MCV 80.9 fL (80.0-100.0); MONOCYTES 13.8 % (2-11); NEUTROPHIL ABS# 13.92 10x3/uL (1.78-5.38); NEUTROPHILS 81.2 % (40-80); RDW 16.1 % (11.5-14.5)
[2020-11-07 07:56] LABS: PLATELET COUNT 316 10x3/uL (130-400); WBC 17.1 10x3/uL (4.8-10.8)
--- NOTE | 2020-11-07 08:48 | TEE ---
PATIENT:JORGE CROWLEY MEDICAL RECORD: [id number] LOCATION:[place] [address] AGE OF PATIENT: 75 ADMISSION DATE: 11/03/20 SEX: M REFERRING PHYSICIAN: INTERPRETING PHYSICIAN: SURJIT SHAH MD TRANSESOPHAGEAL ECHOCARDIOGRAM Date: 11/06/20 ROSLYN CHARGE Y INDICATIONS: CABG PREMEDICATIONS: PATIENT'S RESPONSE PROCEDURE DOPPLER MEASUREMENTS: LVIT LA PA RA LVOT RVOT Asc. Ao AV Gradient Peak AV Mean AV Area MV Gradient Peak MV Mean MV Area INTERPRETATION: Doppler: 2-D: COLOR FLOW DOPPLER NORMAL SALINE STUDY: MISCELLANOUS: DIAGNOSIS: PLAN: Operations And Maintenance Technican:3 Dr. Beck Machine Castings Plasterer: Keeley MARTÍNEZ COMMENTS: DATE OF SERVICE: PROCEDURE: Intraoperative ROSLYN. Preoperative normal LV wall motion, normal wall thickening. EF is greater than or equal to 55%. Aortic valve is tricuspid with good valve excursion.. Left atrium appears normal. Mitral valve appears normal. Trivial MR. Postop good contractility of cardiac segments with normal EF. Aortic valve is TRANSESOPHAGEAL ECHOCARDIOGRAM REPORT [id number] JORGE CROWLEY tricuspid. Good valve excursion. Left atrium appears normal. Mitral valve appears normal. Trivial MR. TRANSINT:[id number] Voice Confirmation ID: [id number] DOCUMENT ID: [id number] at 0848 CC: [id number] DICTATION DATE: 11/06/20 1321 DRYING OVEN TENDER: 11/07/20 0336 ADM IN [facility] [address] [place] [address]
--- NOTE | 2020-11-07 09:08 | NUR ---
0800 PT ASSISTED BACK TO BED, CTS DCD BY DR FARRIS, A LINE AND KUMAR DCD AND URINAL PROVIDED
--- NOTE | 2020-11-07 19:00 | NUR ---
BEDSIDE REPORT COMPLETED WITH OFF GOING NURSE. PT IS LAYING IN BED AT THIS TIME. SHIFT ASSESSMENT COMPLETED, SEE FLOWSHEET FOR DETAILS. PT DENIES NEEDS AT THIS TIME. NO S/S OF DISTRESS NOTED. WILL CONTINUE TO MONITOR.
[2020-11-08] VITALS (23 sets, daily range): BP systolic 92–154; BP diastolic 48–93
[2020-11-08 05:00] LABS: ALBUMIN 2.5 g/dL (3.4-5.0); ANION GAP 11.9 mmol/L (8-16); BILIRUBIN - TOTAL 0.62 mg/dL (0.2-1.3); CALCIUM 7.9 mg/dL (8.5-10.1); CARBON DIOXIDE 27.5 mmol/L (21.0-32.0); CREATININE - SERUM 1.5 mg/dL (0.6-1.3); MAGNESIUM - SERUM 2.3 mg/dL (1.8-2.4); POTASSIUM - SERUM 4.4 mmol/L (3.5-5.1); PROTEIN - SERUM 5.8 g/dL (6.4-8.2)
[2020-11-08 05:02] LABS: PHOSPHOROUS 3.4 mg/dL (2.5-4.9)
[2020-11-08 07:14] LABS: BASOPHILS 0.1 % (0-2); EOSINOPHILS 0.3 % (0-7); HEMATOCRIT 23.2 % (42.0-54.0); IMMATURE GRANULOCYTES 0.3 % (0-5); LYMPHOCYTE ABS# 0.44 10x3/uL (1.32-3.57); LYMPHOCYTES 4.2 % (15-50); MCH 25.2 pg (26.0-34.0); MCHC 31.5 g/dL (31.0-37.0); MEAN PLATELET VOLUME 9.9 fL (7.4-10.4); NEUTROPHIL ABS# 8.85 10x3/uL (1.78-5.38); NEUTROPHILS 85.1 % (40-80); PLATELET COUNT 275 10x3/uL (130-400); RDW 16.4 % (11.5-14.5); WBC 10.4 10x3/uL (4.8-10.8)
[2020-11-08 07:18] LABS: HEMOGLOBIN 7.3 g/dL (13.5-17.5)
--- NOTE | 2020-11-08 09:06 | NUR ---
Nutrition follow-up: Pt sleeping during IDT team rounds. Diet order: regular PO intake poor at this time; intake before CABG was 50-100% of meals Labs reviewed Wt: 231# Will continue to provide food choices and honor food preferences. Will offer nutritional supplements. RDN follow-up: 11/10/20
[2020-11-08 10:02] LABS: % SATURATION 2 % (15-55); IRON 8 ug/dl (35-150); TOTAL IRON BIND CAPACITY 267 ug/dl (260-445); UNSAT IRON BIND CAPACITY 259 ug/dl (150-375)
--- NOTE | 2020-11-08 15:36 | NUR ---
O2 AT 3, PATIENT MIN ASST TO GET UP TO BEDSIDE AND TO STAND. PATIENT WALKED 60 FEET WITH MIN ASST USING WALKER. SAT UP IN CHAIR AFTER WALK.
--- NOTE | 2020-11-08 19:00 | NUR ---
BEDSIDE REPORT COMPLETED WITH OFF GOING NURSE. PT IS RESTING IN BED WATCHING TV AT THIS TIME. NO NEEDS EXPRESSED. SHIFT ASSESSMENT COMPLETED, SEE FLOWSHEET FOR DETAILS. NO S/S OF DISTRESS NOTED. WILL CONTINUE TO MONITOR.
[2020-11-09] VITALS (23 sets, daily range): BP systolic 121–186; BP diastolic 63–100
[2020-11-09 04:38] LABS: HEMATOCRIT 25.5 % (42.0-54.0); HEMOGLOBIN 8.1 g/dL (13.5-17.5); MCH 25.5 pg (26.0-34.0); MCHC 31.8 g/dL (31.0-37.0); MCV 80.2 fL (80.0-100.0); MEAN PLATELET VOLUME 9.7 fL (7.4-10.4); RBC 3.18 10x6/uL (4.20-6.10); RDW 15.8 % (11.5-14.5); WBC 9.8 10x3/uL (4.8-10.8)
[2020-11-09 05:08] LABS: ALBUMIN 2.3 g/dL (3.4-5.0); ANION GAP 11.6 mmol/L (8-16); BILIRUBIN - TOTAL 0.82 mg/dL (0.2-1.3); CARBON DIOXIDE 25.7 mmol/L (21.0-32.0); CREATININE - SERUM 1.2 mg/dL (0.6-1.3); POTASSIUM - SERUM 4.3 mmol/L (3.5-5.1); PROTEIN - SERUM 5.9 g/dL (6.4-8.2)
--- NOTE | 2020-11-09 21:27 | NUR ---
O2 STATS 98% ON 2LT NC, NC IS OUT OF NOSE AND ON PT'S CHEEK. PT STATED HE DOES NOT USE OXYGEN AT HOME. O2 TURNED OFF, O2 STATS 96% AN HOUR LATER. WILL CNTINUE TO MONITOR.
[2020-11-10] VITALS (23 sets, daily range): BP systolic 122–178; BP diastolic 63–98
--- NOTE | 2020-11-10 02:28 | NUR ---
I have reviewed this patient and I concur with the Shift Assessment completed by the Licensed Practical Nurse today this shift.
[2020-11-10 03:59] LABS: HEMATOCRIT 26.4 % (42.0-54.0); HEMOGLOBIN 8.3 g/dL (13.5-17.5); MCH 25.2 pg (26.0-34.0); MCHC 31.4 g/dL (31.0-37.0); MCV 80.2 fL (80.0-100.0); MEAN PLATELET VOLUME 9.5 fL (7.4-10.4); RBC 3.29 10x6/uL (4.20-6.10); WBC 9.5 10x3/uL (4.8-10.8)
[2020-11-10 04:12] LABS: ALBUMIN 2.1 g/dL (3.4-5.0); ALKALINE PHOSPHATASE 164 U/L (30-120); BILIRUBIN - TOTAL 0.88 mg/dL (0.2-1.3); CALC OSMOLALITY 280 mosm/kg (275-300); CALCIUM 8.2 mg/dL (8.5-10.1); CARBON DIOXIDE 22.5 mmol/L (21.0-32.0); CHLORIDE - SERUM 106 mmol/L (98-107); GLUCOSE 111 mg/dL (74-106); POTASSIUM - SERUM 3.9 mmol/L (3.5-5.1); PROTEIN - SERUM 5.7 g/dL (6.4-8.2); SODIUM 138 mmol/L (136-145); UREA NITROGEN 25 mg/dL (7-18); eGFR NON AFRICAN AMERICAN 77 mL/min (90-120)
[2020-11-10 04:13] LABS: ALT (SGPT) 62 U/L (10-68)
--- NOTE | 2020-11-10 05:41 | NUR ---
PT HR FANNY DOWN TO 47 WHILE SLEEPING, WOKE UP AND WENT BACK UP TO 77
--- NOTE | 2020-11-10 06:22 | NUR ---
PT COMPLAINING OF LEFT SIDE PAIN AND SHORT OF BREATH THIS MORNING, PT WANTS TO WAIT TO TAKE UPD UNTIL GETS THE PAIN UNDER CONTROL; ADVISED NURSE OF PAIN LEVEL
--- NOTE | 2020-11-10 07:10 | NUR ---
REPORT RECEIVED. ASSESSMENT COMPLETE PER FLOW SHEET. PT REFUSED BREATHING TREATMENT THIS A.M. STATING HE WAS TOO SOB. EDUCATION GIVEN REGAURDING BREATHING TX HELPING WITH SOB AND KEEPS LUNGS OPEN TO PREVENT FURTHER SOB AND PNUEMONIA. STATED OKAY HE WOULD TAKE IT AT THIS TIME. RESP AT BEDSIDE. GIVEN EDUCATION REGAURDING FLUTTER AND I/S AND THAT HE WOULD BE PREFORMING Q1H TODAY. STATED OKAY. REQUEST FOR PT TO GET OOB TO CHAIR PT REFUSED STATED WAS NOT READY AT THIS TIME. NURSE STATED AFTER BREATHING TREATMENT FINISHED HE HAD TO GET OOB. STATED OKAY. ASSESSMENT COMPLETE PER FLOW SHEET. NO NEW FINDINGS. VSS. DENIES FURTHER NEEDS.
--- NOTE | 2020-11-10 09:15 | NUR ---
DR CAMACHO AT BEDSIDE. GIVEN UPDATE. NEW ORDERS RECEIVED FOR GAS/CONSITPATION. PT DENIES FURTHER NEEDS.
--- NOTE | 2020-11-10 10:20 | NUR ---
PT FOUND TO BE BACK IN BED. I/S ENCOURAGED 1500 MET. ENCOURAGED TO STAY OOB AND USE I/S EVERY 30MIN-1 HR.
--- NOTE | 2020-11-10 11:00 | NUR ---
REASSESSMENT COMPLETE NO NEW FINDINGS.
--- NOTE | 2020-11-10 11:06 | NUR ---
Nutrition Follow-up: POD 4 CABG. Ate majority of breakfast this AM. Denies N/V, chewing/swallowing difficulties. -BM; +flatus. KUB done. Miralax & simethicone ordered. Diet: Regular Wt: 224.8# (11/10); 236.9# (11/03) Labs noted: Glu 111, Ca 8.2, Alb 2.1 Meds noted: Senokot, Colace, Protonix, NS @ 50 -Encourage PO intake and honor food preferences. -Monitor wt. -RD follow-up: 11/13
--- NOTE | 2020-11-10 12:15 | NUR ---
ASSISTED OOB TO CHAIR ATE 50% LUNCH.
--- NOTE | 2020-11-10 15:00 | NUR ---
REASSESSMENT COMPLETE NO NEW FINDINGS.
--- NOTE | 2020-11-10 15:30 | NUR ---
DR ROY AT BEDSIDE GIVEN UPDATE. NO NEW ORDERS. STATED UNAWARE THAT PT HR WAS IN 40'S THROUGHOUT NIGHT. STATED THAT IT HAD NOT OCCURED DURING AM SHIFT. STATED OKAY.
--- NOTE | 2020-11-10 16:00 | NUR ---
JIM RN WITH DR FARRIS AT BEDSIDE GIVEN UPDATE. TPM WIRES REMOVED AND BILAT CHELA DRAINS REMOVED WITHOUT DIFFICULTY. DENIES NEEDS.
--- NOTE | 2020-11-10 16:20 | NUR ---
PT AT BEDSIDE GIVEN UPDATE. PT WALKED AT THIS TIME.
--- NOTE | 2020-11-10 20:00 | NUR ---
REC'D AWAKE, ALERT REQUESTING TO USE BCS. HAD MED AMT SOFTLY FORMED STOOL, PERIANAL CARE GIVEN AND ASSISTED BACK TO BED. INITIAL ASSESSMENT COMPLETED AND RECORDED PER FLOW SHEET. ALL DRSGS INTACT. LEFT UPPER SUBC DRSG C/D/I. TEDs IN PLACE GAMAL. SR PER MONITOR WITH O2 SAT 99-100% ON 2L. WILL CONT TO MONITOR
[2020-11-11] VITALS (24 sets, daily range): BP systolic 103–153; BP diastolic 63–96
--- NOTE | 2020-11-11 | NUR ---
CONT TO LIE QUIETLY W/O COMPLAINT. VS REMAIN STABLE. NO C/OS OF PAIN OR DISCOMFORT. WILL CONT TO MONITOR
--- NOTE | 2020-11-11 04:40 | NUR ---
NO CHANGES IN INITIAL ASSESSMENT. CONT TO LIE QUIETLY, RESP EVEN. SR PER MONITOR.
--- NOTE | 2020-11-11 07:00 | NUR ---
UP IN CHAIR AT BEDSIDE. GAIT UNSTEADY. VOIDED CLEAR NETO URINE. TOLERATED FAIR.
[2020-11-11 07:41] LABS: HEMATOCRIT 27.1 % (42.0-54.0); HEMOGLOBIN 8.5 g/dL (13.5-17.5); MCH 25.2 pg (26.0-34.0); MCHC 31.4 g/dL (31.0-37.0); MCV 80.4 fL (80.0-100.0); MEAN PLATELET VOLUME 9.5 fL (7.4-10.4); RBC 3.37 10x6/uL (4.20-6.10); RDW 16.3 % (11.5-14.5)
[2020-11-11 07:55] LABS: ALKALINE PHOSPHATASE 183 U/L (30-120); BILIRUBIN - TOTAL 0.74 mg/dL (0.2-1.3); CALC OSMOLALITY 281 mosm/kg (275-300); CALCIUM 8.1 mg/dL (8.5-10.1); CARBON DIOXIDE 23.7 mmol/L (21.0-32.0); CHLORIDE - SERUM 107 mmol/L (98-107); GLUCOSE 98 mg/dL (74-106); PROTEIN - SERUM 5.5 g/dL (6.4-8.2); SODIUM 140 mmol/L (136-145); UREA NITROGEN 20 mg/dL (7-18); eGFR NON AFRICAN AMERICAN 77 mL/min (90-120)
[2020-11-11 07:56] LABS: ALT (SGPT) 87 U/L (10-68)
--- NOTE | 2020-11-11 08:00 | NUR ---
OXYGEN OFF. ON ROOM AIR. BREAKFAST TRAY SERVED. GOOD APPETITE. NO DIFFICULTY SWALLOWING. PO FLUIDS TAKEN
--- NOTE | 2020-11-11 09:00 | NUR ---
ON BSC LARGE SOFT BROWN STOOL. VOIDED. AMBULATES WITH ASSISTANCES. GAIT UNSTEADY. RETURNED TO CHAIR
--- NOTE | 2020-11-11 13:49 | NUR ---
AMBULATED IN SELF PER PHYSICAL THERAPY WITH WALKER.
[2020-11-11 14:09] LABS: IMMUNOGLOBULIN E 720 IU/mL (6-495)
--- NOTE | 2020-11-11 16:30 | NUR ---
HERE UPDATE GIVEN. DINNER TRAY SERVED. GOOD APPETITE. NO DISTRESS. WATCHED TV TODAY. AMBULATED IN SELF WITH PHYSICAL THERAPY TWICE. VOIDING IN URINAL.
--- NOTE | 2020-11-11 17:54 | NUR ---
COMPLETE HIBCLENS BATH GIVEN WITH LINEN CHANGE. SHAVED WITH ELECTRIC RAZOR. PATIENT TOLERATED WELL. AMBULATED BACK TO BED. LOWER SUBSTERNAL DRESSING CHANGED. INCISIONS CLEAN WITH BETADINE. NO DRAINAGE NOTED. 4X4 APPLIED. SECURE WITH TEGRADERM. PATIENT TOLERATED WELL.
--- NOTE | 2020-11-11 19:55 | NUR ---
REC'D AWAKE, ALERT IN BED BUT IN A FEW MINUTES AFTER FINISHING ASSESSMENT WANTED TO GET BACK UP AND SIT IN CHAIR. ASSISTED TO CHAIR, FEET ELEVATED. WILL PROVIDE WITH NEEDS AND MONITOR PROGRESS.
--- NOTE | 2020-11-11 22:45 | NUR ---
ASSISTED BACK TO BED AFTER 9PM MEDS. ARRANGED FOR COMFORT. DENIES NEEDS. WILL MONITOR FOR SOB OR DISCOMFORT.
[2020-11-12] VITALS (24 sets, daily range): BP systolic 118–176; BP diastolic 42–95
--- NOTE | 2020-11-12 01:20 | NUR ---
LYING QUIETLY WITHOUT COMPLAINT. RESP EVEN AND UNLABORED HAS BEEN 99-100% ON RM AIR W/O ANY DISTRESS, ALTHO RESP ARE STILL S/W SHALLOW, IS USING INCENTIVE SPIROMETER FREQUENTLY. CONT TO MONITOR.
--- NOTE | 2020-11-12 03:30 | NUR ---
WOKE UP BY PNEUMATIC TOOL REPAIRER FOR MORNING XRAY AT WHICH POINT PT STATED THAT HE JUST COULDN'T GET COMFORTABLE. ASSISTED TO FIND A MORE COMFORTABLE POSITION TO NO AVAIL. ASKED FOR A PAIN PILL. GIVEN 1 PERCOCET @ 0318, WILL MONITOR FOR EFFECT.
[2020-11-12 04:06] LABS: HEMATOCRIT 28.8 % (42.0-54.0); HEMOGLOBIN 8.9 g/dL (13.5-17.5); MCH 24.9 pg (26.0-34.0); MCHC 30.9 g/dL (31.0-37.0); MCV 80.4 fL (80.0-100.0); MEAN PLATELET VOLUME 9.6 fL (7.4-10.4); RBC 3.58 10x6/uL (4.20-6.10); RDW 16.2 % (11.5-14.5); WBC 8.5 10x3/uL (4.8-10.8)
[2020-11-12 04:32] LABS: ALKALINE PHOSPHATASE 187 U/L (30-120); ALT (SGPT) 93 U/L (10-68); AMYLASE - SERUM 106 U/L (25-115); BILIRUBIN - TOTAL 0.72 mg/dL (0.2-1.3); CALC OSMOLALITY 280 mosm/kg (275-300); CALCIUM 8.2 mg/dL (8.5-10.1); CHLORIDE - SERUM 109 mmol/L (98-107); GLUCOSE 101 mg/dL (74-106); LIPASE 760 U/L (73-393); POTASSIUM - SERUM 3.9 mmol/L (3.5-5.1); PROTEIN - SERUM 5.6 g/dL (6.4-8.2); SODIUM 140 mmol/L (136-145); UREA NITROGEN 19 mg/dL (7-18); eGFR NON AFRICAN AMERICAN 77 mL/min (90-120)
--- NOTE | 2020-11-12 14:00 | NUR ---
RETURNED TO BED FOR ABD ULTRASOUND
--- NOTE | 2020-11-12 15:00 | NUR ---
FAMILY HERE UPDATE GIVEN
--- NOTE | 2020-11-12 16:33 | NUR ---
UP TO BSC, LARGE DARK BROWN FORMED STOOL. COMPLETE HIBCLENS BATH GIVEN. ABD DRESSING CHANGED INCISIONS CLEAN WITH BETADINE COVERED WITH 4X4 SECURE WITH TEGRADERM. TOLERATED WELL. AMBULATED TO CHAIR IN ROOM. VOIDING DARK NETO URINE IN URINAL.
--- NOTE | 2020-11-12 18:37 | MORECARE ---
CASE MANAGEMENT DISCHARGE SUMMARY PATIENT: JORGE CROWLEY UNIT: [id number] ADM DATE: 11/03/20 AGE: 75 : 43 SEX: M ROOM/BED: D.2304 AUTHOR: LEA,DOC PHYSICIAN: REFERRING PHYSICIAN: ZENON FARRIS MD DATE OF SERVICE: 11/12/20 Case Management Discharge Planning Summary DCP REVIEW SUMMARY ANTICIPATED D/C DATE: EXPECTED LOS : CASE STATUS: DCP Initiated INITIAL REVIEW: 11/03/2020 INITIAL REVIEWER: Zita Pineda FINAL DISCHARGE DISPOSITION: : FINAL REVIEWER: FINAL REVIEW DATE: DCP Focus Questions & Answers QUESTION: ANSWER : PATIENT: JORGE CROWLEY ENCOUNTER: [id number] MEDICAL RECORD#: [id number] ADMISSION DATE: 11/03/2020 DISCHARGE DATE: ATTENDING MD: ZENON MCKEON : AGE: 75 MARITAL STATUS: M DC PLAN ID: [id number] FACILITY: [facility] PRINTED ON: 11/12/20 18:37 CT All edits/amendments must be made on the electronic document DICTATION DATE: 11/12/201836 VOCATIONAL CHILDCARE TEACHER: DM 11/12/201836 RPT#: [id number] DC DATE: STATUS: ADM IN [facility] [address] [place] [address] END OF REPORT
--- NOTE | 2020-11-12 19:10 | MORECARE ---
CASE MANAGEMENT DISCHARGE SUMMARY PATIENT: JORGE CROWLEY UNIT: [id number] ADM DATE: 11/03/20 AGE: 75 : 43 SEX: M ROOM/BED: D.2304 AUTHOR: LEA,DOC PHYSICIAN: REFERRING PHYSICIAN: ZENON FARRIS MD DATE OF SERVICE: 11/12/20 Case Management Discharge Planning Summary COMMENTS ENTERED DATE: 11/12/20 18:50 CT COMMENT TYPE: Discharge Planning REVIEWER: Zita Pineda CM notified that patient is in need of walker upon discharge THAI completed for DME. CM sent order and referral to [facility] for walker. DCP REVIEW SUMMARY ANTICIPATED D/C DATE: EXPECTED LOS : CASE STATUS: DCP Initiated INITIAL REVIEW: 11/03/2020 INITIAL REVIEWER: Zita Pineda FINAL DISCHARGE DISPOSITION: : FINAL REVIEWER: FINAL REVIEW DATE: DCP Focus Questions & Answers QUESTION: ANSWER : PATIENT: JORGE CROWLEY ENCOUNTER: [id number] MEDICAL RECORD#: [id number] ADMISSION DATE: 11/03/2020 DISCHARGE DATE: ATTENDING MD: ZENON MCKEON : AGE: 75 MARITAL STATUS: M DC PLAN ID: [id number] FACILITY: [facility] PRINTED ON: 11/12/20 19:09 CT All edits/amendments must be made on the electronic document DICTATION DATE: 11/12/201908 OPHTHALMIC TECH: RAFFY 11/12/201908 RPT#: [id number] DC DATE: STATUS: ADM IN [facility] [address] [place] [address] END OF REPORT
[2020-11-13] VITALS (15 sets, daily range): BP systolic 112–162; BP diastolic 52–99
[2020-11-13 04:43] LABS: BASOPHILS 0 % (0-2); EOSINOPHILS 4.6 % (0-7); HEMATOCRIT 27.1 % (42.0-54.0); HEMOGLOBIN 8.4 g/dL (13.5-17.5); IMMATURE GRANULOCYTES 0.8 % (0-5); LYMPHOCYTE ABS# 1.04 10x3/uL (1.32-3.57); LYMPHOCYTES 12.4 % (15-50); MCH 25.2 pg (26.0-34.0); MCV 81.4 fL (80.0-100.0); MEAN PLATELET VOLUME 9.4 fL (7.4-10.4); MONOCYTES 9.3 % (2-11); NEUTROPHIL ABS# 6.12 10x3/uL (1.78-5.38); NEUTROPHILS 72.9 % (40-80); PLATELET COUNT 470 10x3/uL (130-400); RBC 3.33 10x6/uL (4.20-6.10); RDW 16.5 % (11.5-14.5); WBC 8.4 10x3/uL (4.8-10.8)
[2020-11-13 05:20] LABS: ALKALINE PHOSPHATASE 158 U/L (30-120); ALT (SGPT) 70 U/L (10-68); BILIRUBIN - TOTAL 0.59 mg/dL (0.2-1.3); CARBON DIOXIDE 26.4 mmol/L (21.0-32.0); CHLORIDE - SERUM 108 mmol/L (98-107); CREATININE - SERUM 0.9 mg/dL (0.6-1.3); GLUCOSE 95 mg/dL (74-106); POTASSIUM - SERUM 4.2 mmol/L (3.5-5.1); PROTEIN - SERUM 5.6 g/dL (6.4-8.2); SODIUM 141 mmol/L (136-145); eGFR NON AFRICAN AMERICAN 87 mL/min (90-120)
[2020-11-13 05:33] LABS: CALC OSMOLALITY 281 mosm/kg (275-300); LIPASE 541 U/L (73-393); UREA NITROGEN 14 mg/dL (7-18)
--- NOTE | 2020-11-13 07:10 | NUR ---
REPORT RECEIVED. ASSESSMEN COMPLETE PER FLOW SHEET. VSS. PT UP IN CHAIR DENIES NEEDS.
--- NOTE | 2020-11-13 09:20 | NUR ---
ATE 100% BREAKFAST. DENIES NEEDS
--- NOTE | 2020-11-13 10:50 | NUR ---
Nutrition Reassessment/Follow-up: POD 7 CABG. Reports eating 100% of breakfast this AM. Diet: Regular Wt: 226# (11/12); 236.9# (11/03) Last BM: 11/13 Labs noted: Ca 8.0, Alb 2.0, Lipase 541 Meds noted: Miralax, Senokot, Colace, Protonix, NS @ 50 -Nutrition needs unchanged from initial assessment. -RD follow-up: 11/15
--- NOTE | 2020-11-13 11:00 | NUR ---
REASSESSMETN COMPLETE PER FLOW SHEET. VSS. NO NEW CHANGES
--- NOTE | 2020-11-13 11:50 | NUR ---
ASSISTED TO BEDSIDE COMMODE LARGE LOOSE BM NOTED.
--- NOTE | 2020-11-13 12:05 | NUR ---
REHAB PRESCREEN HAS BEEN RECEIVED. PER PHYSICAL THERAPY, HE AMBULATED 262 FEET WITH 5% ASSISTANCE AND NO DOCUMENTED BREAKS. THEY ARE RECOMMENDING HOME WITH HOME HEALTH AND THERE WERE NO OTHER THERAPIES ORDERED. SECONDARY TO HIM NOT SHOWING THE NEED FOR 3 HOURS OF THERAPY AT LEAST 5 DAYS A WEEK, WE WILL NOT BE ABLE TO ACCEPT HIM INTO THE ACUTE REHAB UNIT. THANK YOU FOR THE REFERRAL. DARYL WHITAKER RN CLINICAL LIAISON, INPATIENT REHAB.
--- NOTE | 2020-11-13 12:21 | NUR ---
ATE 100% OF LUNCH
[2020-11-13] MEDS ORDERED: PERCOCET 5-3251 TAB PO (14:52)
--- NOTE | 2020-11-13 14:58 | MORECARE ---
CASE MANAGEMENT DISCHARGE SUMMARY PATIENT: JORGE CROWLEY UNIT: [id number] ADM DATE: 11/03/20 AGE: 75 : 43 SEX: M ROOM/BED: D.2304 AUTHOR: LEA,DOC PHYSICIAN: REFERRING PHYSICIAN: ZENON FARRIS MD DATE OF SERVICE: 11/13/20 Case Management Discharge Planning Summary COMMENTS ENTERED DATE: 11/12/20 18:50 CT COMMENT TYPE: Discharge Planning REVIEWER: Zita Pineda CM notified that patient is in need of walker upon discharge THAI completed for DME. CM sent order and referral to [facility] for walker. DCP REVIEW SUMMARY ANTICIPATED D/C DATE: EXPECTED LOS : CASE STATUS: DCP Initiated INITIAL REVIEW: 11/03/2020 INITIAL REVIEWER: Zita Pineda FINAL DISCHARGE DISPOSITION: : FINAL REVIEWER: FINAL REVIEW DATE: DCP Focus Questions & Answers DCP Screen QUESTION: ANSWER High Risk Factors: : None Walking limitation: Patient stated self rated walking limitation present? : Yes Age: : 63 - 77 Prior living environment: : Lives with others Disability ranking: : Grade 2: Slight disability DCP Evaluation QUESTION: ANSWER Patient gives permission to discuss discharge plans with: (name, relationship and number) : Hannah Crowley Patient's ability to cope with chronic illness : a. Adequate (0-3 ED visits in 6 mos., adequate financial resources, attends scheduled appts.) Family / Caregiver's ability to cope with chronic illness: : a. Adequate (ability to meet patient's medical needs, ensures patient attends medical appts.) Physical Status: : Independent with ADL's Living Arrangements: : Home with Spouse/Significant Other Baseline cognitive status: : *Oriented to person, place, situation, time and present Medication Management: : Patient states can afford medications Pharmacy name(s): : [address] Does Patient have transportation to get home and to follow-up medical appointments when discharged from the hospital? : Yes Would patient like to participate in any Care Coordination programs (if applicable): : Not applicable Does the patient have electricity at home? : Yes Does the patient have running water in their house? : Yes Equipment in use: : None Mental health screen: : No mental health history Psychosocial status: : Independent adult (65+) Abuse/Neglect: : None Resources / Services in place: : None DCP Re-evaluation QUESTION: ANSWER Would patient like to participate in any Care Coordination programs (if applicable): : Not applicable PATIENT: JORGE CROWLEY ENCOUNTER: [id number] MEDICAL RECORD#: [id number] ADMISSION DATE: 11/03/2020 DISCHARGE DATE: ATTENDING MD: ZENON MCKEON : AGE: 75 MARITAL STATUS: M DC PLAN ID: [id number] FACILITY: [facility] PRINTED ON: 11/13/20 14:58 CT All edits/amendments must be made on the electronic document DICTATION DATE: 11/13/201457 LATH HAND: DM 11/13/201457 RPT#: [id number] DC DATE: STATUS: ADM IN [facility] [address] [place] [address] END OF REPORT
--- NOTE | 2020-11-13 15:11 | MORECARE ---
CASE MANAGEMENT DISCHARGE SUMMARY PATIENT: JORGE CROWLEY UNIT: [id number] ADM DATE: 11/03/20 AGE: 75 : 43 SEX: M ROOM/BED: D.2304 AUTHOR: LEA,DOC PHYSICIAN: REFERRING PHYSICIAN: ZENON FARRIS MD DATE OF SERVICE: 11/13/20 Case Management Discharge Planning Summary COMMENTS ENTERED DATE: 11/12/20 18:50 CT COMMENT TYPE: Discharge Planning REVIEWER: Zita Pineda CM notified that patient is in need of walker upon discharge THAI completed for DME. CM sent order and referral to [facility] [place] for walker. DCP REVIEW SUMMARY ANTICIPATED D/C DATE: EXPECTED LOS : CASE STATUS: DCP Initiated INITIAL REVIEW: 11/03/2020 INITIAL REVIEWER: Zita Pineda FINAL DISCHARGE DISPOSITION: : FINAL REVIEWER: FINAL REVIEW DATE: DCP Focus Questions & Answers DCP Screen QUESTION: ANSWER High Risk Factors: : None Walking limitation: Patient stated self rated walking limitation present? : Yes Age: : 65 - 77 Prior living environment: : Lives with others Disability ranking: : Grade 2: Slight disability DCP Evaluation QUESTION: ANSWER Patient gives permission to discuss discharge plans with: (name, relationship and number) : aHnnah Crowley Patient's ability to cope with chronic illness : a. Adequate (0-3 ED visits in 6 mos., adequate financial resources, attends scheduled appts.) Patient and/or caregiver agree upon recommended discharge plan? : Yes Family / Caregiver's ability to cope with chronic illness: : a. Adequate (ability to meet patient's medical needs, ensures patient attends medical appts.) Patient's current cognitive status: : *Oriented to person, place, situation, time and present Family / Caregiver's ability to cope with chronic illness: : a. Adequate (ability to meet patient's medical needs, ensures patient attends medical appts.) Physical Status: : Independent with ADL's Does the patient have the ability to pay for or attain post discharge needs / services? : Yes Functional screen assessment: : Basic needs can adequately be met by self Living Arrangements: : Home with Spouse/Significant Other Equipment needed for post hospitalization: : Walker - Rolling Is there a likelihood that the patient will require additional services to return to the preadmission environment? : Yes Baseline cognitive status: : *Oriented to person, place, situation, time and present Results of this evaluation have been discussed with: : Significant other Patient with capacity for self-care or can be cared for in same environment as prior to hospitalization? : Yes Physical environment modification needed / anticipated for discharge: : No Preadmission facility can/cannot provide post hospital level of care needs: : Can - at lower level of care than preadmission Medication Management: : Patient states can afford medications [facility]acy [facility] Planned post hospital services available for patient? : Yes Does Patient have transportation to get home and to follow-up medical appointments when discharged from the hospital? : Yes Planned post hospital services covered by insurance plan? : Yes Would patient like to participate in any Care Coordination programs (if applicable): : Not applicable Does the patient have electricity at home? : Yes Does the patient have running water in their house? : Yes Equipment in use: : None Mental health screen: : No mental health history Psychosocial status: : Independent adult (65+) Abuse/Neglect: : None Resources / Services in place: : None DCP Re-evaluation QUESTION: ANSWER Would patient like to participate in any Care Coordination programs (if applicable): : Not applicable PATIENT: JORGE CROWLEY ENCOUNTER: [id number] MEDICAL RECORD#: [id number] ADMISSION DATE: 11/03/2020 DISCHARGE DATE: ATTENDING MD: ZENON MCKEON : AGE: 75 MARITAL STATUS: M DC PLAN ID: [id number] FACILITY: [facility] PRINTED ON: 11/13/20 15:11 CT All edits/amendments must be made on the electronic document DICTATION DATE: 11/13/201510 EDUCATIONAL MANAGER: RAFFY 11/13/201510 RPT#: [id number] DC DATE: STATUS: ADM IN [facility] [address] [place] [address] END OF REPORT
--- NOTE | 2020-11-13 15:26 | MORECARE ---
CASE MANAGEMENT DISCHARGE SUMMARY PATIENT: JORGE CROWLEY UNIT: [id number] ADM DATE: 11/03/20 AGE: 75 : 43 SEX: M ROOM/BED: D.2304 AUTHOR: LEA,DOC PHYSICIAN: REFERRING PHYSICIAN: ZENON FARRIS MD DATE OF SERVICE: 11/13/20 Case Management Discharge Planning Summary COMMENTS ENTERED DATE: 11/13/20 14:59 CT COMMENT TYPE: Discharge Planning REVIEWER: Gina Gomes After obtaining verbal consent, CM met with patient and spouse about discharge planning / needs. ENTERED DATE: 11/12/20 18:50 CT COMMENT TYPE: Discharge Planning REVIEWER: Zita Pineda CM notified that patient is in need of walker upon discharge THAI completed for DME. CM sent order and referral to [facility] [place] for walker. DCP REVIEW SUMMARY ANTICIPATED D/C DATE: EXPECTED LOS : CASE STATUS: DCP Initiated INITIAL REVIEW: 11/03/2020 INITIAL REVIEWER: Zita Pineda FINAL DISCHARGE DISPOSITION: : FINAL REVIEWER: FINAL REVIEW DATE: DCP Focus Questions & Answers DCP Screen QUESTION: ANSWER High Risk Factors: : None Walking limitation: Patient stated self rated walking limitation present? : Yes Age: : 63 - 77 Prior living environment: : Lives with others Disability ranking: : Grade 2: Slight disability DCP Evaluation QUESTION: ANSWER Patient gives permission to discuss discharge plans with: (name, relationship and number) : Hannah Crowley Patient's ability to cope with chronic illness : a. Adequate (0-3 ED visits in 6 mos., adequate financial resources, attends scheduled appts.) Patient and/or caregiver agree upon recommended discharge plan? : Yes Family / Caregiver's ability to cope with chronic illness: : a. Adequate (ability to meet patient's medical needs, ensures patient attends medical appts.) Patient's current cognitive status: : *Oriented to person, place, situation, time and present Family / Caregiver's ability to cope with chronic illness: : a. Adequate (ability to meet patient's medical needs, ensures patient attends medical appts.) Physical Status: : Independent with ADL's Does the patient have the ability to pay for or attain post discharge needs / services? : Yes Functional screen assessment: : Basic needs can adequately be met by self Living Arrangements: : Home with Spouse/Significant Other Equipment needed for post hospitalization: : Walker - Rolling Is there a likelihood that the patient will require additional services to return to the preadmission environment? : Yes Baseline cognitive status: : *Oriented to person, place, situation, time and present Results of this evaluation have been discussed with: : Significant other Patient with capacity for self-care or can be cared for in same environment as prior to hospitalization? : Yes Physical environment modification needed / anticipated for discharge: : No Preadmission facility can/cannot provide post hospital level of care needs: : Can - at lower level of care than preadmission Medication Management: : Patient states can afford medications Pharmacy name(s): : [facility] Planned post hospital services available for patient? : Yes Does Patient have transportation to get home and to follow-up medical appointments when discharged from the hospital? : Yes Planned post hospital services covered by insurance plan? : Yes Would patient like to participate in any Care Coordination programs (if applicable): : Not applicable Does the patient have electricity at home? : Yes Does the patient have running water in their house? : Yes Equipment in use: : None Mental health screen: : No mental health history Psychosocial status: : Independent adult (65+) Abuse/Neglect: : None Resources / Services in place: : None DCP Re-evaluation QUESTION: ANSWER Would patient like to participate in any Care Coordination programs (if applicable): : Not applicable PATIENT: JORGE CROWLEY ENCOUNTER: [id number] MEDICAL RECORD#: [id number] ADMISSION DATE: 11/03/2020 DISCHARGE DATE: ATTENDING MD: ZENON MCKEON : AGE: 75 MARITAL STATUS: M DC PLAN ID: [id number] FACILITY: [facility] PRINTED ON: 11/13/20 15:26 CT All edits/amendments must be made on the electronic document DICTATION DATE: 11/13/201525 SEAMLESS TUBE MILL OPERATOR: RAFFY 11/13/20 152 RPT#: [id number] DC DATE: STATUS: ADM IN [facility] [address] [place] [address] END OF REPORT
[2020-11-13] MEDS ORDERED: NIFEREX-150 CAP1 CA3 PO (15:28)
[2020-11-13] MEDS ORDERED: TOPROL XL25 MG PO (15:30)
--- NOTE | 2020-11-13 15:39 | MORECARE ---
CASE MANAGEMENT DISCHARGE SUMMARY PATIENT: JORGE CROWLEY UNIT: [id number] ADM DATE: 11/03/20 AGE: 75 : 43 SEX: M ROOM/BED: D.2304 AUTHOR: LEA,DOC PHYSICIAN: REFERRING PHYSICIAN: ZENON FARRIS MD DATE OF SERVICE: 11/13/20 Case Management Discharge Planning Summary COMMENTS ENTERED DATE: 11/13/20 15:34 CT COMMENT TYPE: Discharge Planning REVIEWER: Gina Gomes After obtaining verbal consent, CM met with patient and spouse to discuss discharge planning / needs. Patient states his plan is to discharge to home where he and his live. States he will need home health for therapy. Walker from [facility] in patient room. States home environment is safe. States his will transport him home upon hospital discharge. States Dr. Ivan is his PCP. CM called Dr. Ivan's office. Obtained order for home health services. Patient signed THAI for [facility]. Copy on chart. CM called and left message with [facility] to return call about referral. CM explained and served DC [facility]. Copy on chart. Patient and deny and other discharge planning needs at this time. CM will follow up with [facility]. ENTERED DATE: 11/12/20 18:50 CT COMMENT TYPE: Discharge Planning REVIEWER: Zita Pineda CM notified that patient is in need of walker upon discharge THAI completed for DME. CM sent order and referral to [facility] for walker. DCP REVIEW SUMMARY ANTICIPATED D/C DATE: EXPECTED LOS : CASE STATUS: DCP Initiated INITIAL REVIEW: 11/03/2020 INITIAL REVIEWER: Zita Pineda FINAL DISCHARGE DISPOSITION: : FINAL REVIEWER: FINAL REVIEW DATE: DCP Focus Questions & Answers DCP Screen QUESTION: ANSWER High Risk Factors: : None Walking limitation: Patient stated self rated walking limitation present? : Yes Age: : 63 - 77 Prior living environment: : Lives with others Disability ranking: : Grade 2: Slight disability DCP Evaluation QUESTION: ANSWER Patient gives permission to discuss discharge plans with: (name, relationship and number) : Hannah Crowley Patient's ability to cope with chronic illness : a. Adequate (0-3 ED visits in 6 mos., adequate financial resources, attends scheduled appts.) Patient and/or caregiver agree upon recommended discharge plan? : Yes Family / Caregiver's ability to cope with chronic illness: : a. Adequate (ability to meet patient's medical needs, ensures patient attends medical appts.) Patient's current cognitive status: : *Oriented to person, place, situation, time and present Family / Caregiver's ability to cope with chronic illness: : a. Adequate (ability to meet patient's medical needs, ensures patient attends medical appts.) Physical Status: : Independent with ADL's Does the patient have the ability to pay for or attain post discharge needs / services? : Yes Functional screen assessment: : Basic needs can adequately be met by self Living Arrangements: : Home with Spouse/Significant Other Equipment needed for post hospitalization: : Walker - Rolling Is there a likelihood that the patient will require additional services to return to the preadmission environment? : Yes Baseline cognitive status: : *Oriented to person, place, situation, time and present Results of this evaluation have been discussed with: : Significant other Patient with capacity for self-care or can be cared for in same environment as prior to hospitalization? : Yes Physical environment modification needed / anticipated for discharge: : No Preadmission facility can/cannot provide post hospital level of care needs: : Can - at lower level of care than preadmission Medication Management: : Patient states can afford medications Pharmacy name(s): : [facility] Planned post hospital services available for patient? : Yes Does Patient have transportation to get home and to follow-up medical appointments when discharged from the hospital? : Yes Planned post hospital services covered by insurance plan? : Yes Would patient like to participate in any Care Coordination programs (if applicable): : Not applicable Does the patient have electricity at home? : Yes Does the patient have running water in their house? : Yes Equipment in use: : None Mental health screen: : No mental health history Psychosocial status: : Independent adult (65+) Abuse/Neglect: : None Resources / Services in place: : None DCP Re-evaluation QUESTION: ANSWER Would patient like to participate in any Care Coordination programs (if applicable): : Not applicable PATIENT: JORGE CROWLEY ENCOUNTER: [id number] MEDICAL RECORD#: [id number] ADMISSION DATE: 11/03/2020 DISCHARGE DATE: ATTENDING MD: ZENON MCKEON : AGE: 75 MARITAL STATUS: M DC PLAN ID: [id number] FACILITY: [facility] PRINTED ON: 11/13/20 15:39 CT All edits/amendments must be made on the electronic document DICTATION DATE: 11/13/201538 LOCOMOTIVE OPERATOR HELPER: RAFFY 11/13/201538 RPT#: [id number] DC DATE: STATUS: ADM IN [facility] [address] [place] [address] END OF REPORT
--- NOTE | 2020-11-13 16:38 | MORECARE ---
CASE MANAGEMENT DISCHARGE SUMMARY PATIENT: JORGE CROWLEY UNIT: [id number] ADM DATE: 11/03/20 AGE: 75 : 43 SEX: M ROOM/BED: D.2304 AUTHOR: LEA,DOC PHYSICIAN: REFERRING PHYSICIAN: ZENON FARRIS MD DATE OF SERVICE: 11/13/20 Case Management Discharge Planning Summary COMMENTS ENTERED DATE: 11/13/20 16:34 CT COMMENT TYPE: Discharge Planning REVIEWER: Gina Gomes CM called [facility] again with referral. Spoke with [facility] about referral. Faxed records as requested. Informed patient and his that agency accepted referral and will call them to set up time for admission. Patient and verbalized understanding and satisfaction with discharge planning. ENTERED DATE: 11/13/20 15:34 CT COMMENT TYPE: Discharge Planning REVIEWER: Gina Gomes After obtaining verbal consent, CM met with patient and spouse to discuss discharge planning / needs. Patient states his plan is to discharge to home where he and his live. States he will need home health for therapy. Walker from [facility] in patient room. States home environment is safe. States his will transport him home upon hospital discharge. States Dr. Ivan is his PCP. CM called Dr. Ivan's office. Obtained order for home health services. Patient signed THAI for [facility]. Copy on chart. CM called and left message with [facility] to return call about referral. CM explained and served DC [facility]. Copy on chart. Patient and deny and other discharge planning needs at this time. CM will follow up with [facility]. ENTERED DATE: 11/12/20 18:50 CT COMMENT TYPE: Discharge Planning REVIEWER: Zita Pineda CM notified that patient is in need of walker upon discharge THAI completed for DME. CM sent order and referral to [facility] for walker. DCP REVIEW SUMMARY ANTICIPATED D/C DATE: EXPECTED LOS : CASE STATUS: DCP Initiated INITIAL REVIEW: 11/03/2020 INITIAL REVIEWER: Zita Pineda FINAL DISCHARGE DISPOSITION: : FINAL REVIEWER: FINAL REVIEW DATE: DCP Focus Questions & Answers DCP Screen QUESTION: ANSWER High Risk Factors: : None Walking limitation: Patient stated self rated walking limitation present? : Yes Age: : 63 - 77 Prior living environment: : Lives with others Disability ranking: : Grade 2: Slight disability DCP Evaluation QUESTION: ANSWER Patient gives permission to discuss discharge plans with: (name, relationship and number) : Hannah Crowley Patient's ability to cope with chronic illness : a. Adequate (0-3 ED visits in 6 mos., adequate financial resources, attends scheduled appts.) Patient and/or caregiver agree upon recommended discharge plan? : Yes Family / Caregiver's ability to cope with chronic illness: : a. Adequate (ability to meet patient's medical needs, ensures patient attends medical appts.) Patient's current cognitive status: : *Oriented to person, place, situation, time and present Family / Caregiver's ability to cope with chronic illness: : a. Adequate (ability to meet patient's medical needs, ensures patient attends medical appts.) Physical Status: : Independent with ADL's Does the patient have the ability to pay for or attain post discharge needs / services? : Yes Functional screen assessment: : Basic needs can adequately be met by self Living Arrangements: : Home with Spouse/Significant Other Equipment needed for post hospitalization: : Walker - Rolling Is there a likelihood that the patient will require additional services to return to the preadmission environment? : Yes Baseline cognitive status: : *Oriented to person, place, situation, time and present Results of this evaluation have been discussed with: : Significant other Patient with capacity for self-care or can be cared for in same environment as prior to hospitalization? : Yes Physical environment modification needed / anticipated for discharge: : No Preadmission facility can/cannot provide post hospital level of care needs: : Can - at lower level of care than preadmission Medication Management: : Patient states can afford medications Pharmacy name(s): : [facility] Planned post hospital services available for patient? : Yes Does Patient have transportation to get home and to follow-up medical appointments when discharged from the hospital? : Yes Planned post hospital services covered by insurance plan? : Yes Would patient like to participate in any Care Coordination programs (if applicable): : Not applicable Does the patient have electricity at home? : Yes Does the patient have running water in their house? : Yes Equipment in use: : None Mental health screen: : No mental health history Psychosocial status: : Independent adult (65+) Abuse/Neglect: : None Resources / Services in place: : None DCP Re-evaluation QUESTION: ANSWER Would patient like to participate in any Care Coordination programs (if applicable): : Not applicable PATIENT: JORGE CROWLEY ENCOUNTER: [id number] MEDICAL RECORD#: [id number] ADMISSION DATE: 11/03/2020 DISCHARGE DATE: ATTENDING MD: ZENON MCKEON : AGE: 75 MARITAL STATUS: M DC PLAN ID: [id number] FACILITY: [facility] PRINTED ON: 11/13/20 16:38 CT All edits/amendments must be made on the electronic document DICTATION DATE: 11/13/201637 PUG MACHINE OPERATOR: RAFFY 11/13/201637 RPT#: [id number] DC DATE: STATUS: ADM IN [facility] [address] [place] [address] END OF REPORT
--- NOTE | 2020-11-14 13:15 | MORECARE ---
CASE MANAGEMENT DISCHARGE SUMMARY PATIENT: JORGE CROWLEY UNIT: [id number] ADM DATE: 11/03/20 AGE: 75 : 41 SEX: M ROOM/BED: D.2304 AUTHOR: LEA,DOC PHYSICIAN: REFERRING PHYSICIAN: ZENON FARRIS MD DATE OF SERVICE: 11/14/20 Case Management Discharge Planning Summary COMMENTS ENTERED DATE: 11/13/20 16:34 CT COMMENT TYPE: Discharge Planning REVIEWER: Gina Gomes CM called [facility] again with referral. Spoke with [facility] about referral. Faxed records as requested. Informed patient and his that agency accepted referral and will call them to set up time for admission. Patient and verbalized understanding and satisfaction with discharge planning. ENTERED DATE: 11/13/20 15:34 CT COMMENT TYPE: Discharge Planning REVIEWER: Gina Gomes After obtaining verbal consent, CM met with patient and spouse to discuss discharge planning / needs. Patient states his plan is to discharge to home where he and his live. States he will need home health for therapy. Walker from [facility] in patient room. States home environment is safe. States his will transport him home upon hospital discharge. States Dr. Ivan is his PCP. CM called Dr. Ivan's office. Obtained order for home health services. Patient signed THAI for [facility]. Copy on chart. CM called and left message with [facility] to return call about referral. CM explained and served DC IMM. Copy on chart. Patient and deny and other discharge planning needs at this time. CM will follow up with [facility]. ENTERED DATE: 11/12/20 18:50 CT COMMENT TYPE: Discharge Planning REVIEWER: Zita Pineda CM notified that patient is in need of walker upon discharge THAI completed for DME. CM sent order and referral to [facility] for walker. DCP REVIEW SUMMARY ANTICIPATED D/C DATE: EXPECTED LOS : CASE STATUS: DCP Initiated INITIAL REVIEW: 11/03/2020 INITIAL REVIEWER: Zita Pineda FINAL DISCHARGE DISPOSITION: : FINAL REVIEWER: FINAL REVIEW DATE: DCP Focus Questions & Answers DCP Screen QUESTION: ANSWER High Risk Factors: : None Walking limitation: Patient stated self rated walking limitation present? : Yes Age: : 63 - 77 Prior living environment: : Lives with others Disability ranking: : Grade 2: Slight disability DCP Evaluation QUESTION: ANSWER Patient gives permission to discuss discharge plans with: (name, relationship and number) : Hannah Crowley Patient's ability to cope with chronic illness : a. Adequate (0-3 ED visits in 6 mos., adequate financial resources, attends scheduled appts.) Patient and/or caregiver agree upon recommended discharge plan? : Yes Family / Caregiver's ability to cope with chronic illness: : a. Adequate (ability to meet patient's medical needs, ensures patient attends medical appts.) Patient's current cognitive status: : *Oriented to person, place, situation, time and present Family / Caregiver's ability to cope with chronic illness: : a. Adequate (ability to meet patient's medical needs, ensures patient attends medical appts.) Physical Status: : Independent with ADL's Does the patient have the ability to pay for or attain post discharge needs / services? : Yes Functional screen assessment: : Basic needs can adequately be met by self Living Arrangements: : Home with Spouse/Significant Other Equipment needed for post hospitalization: : Walker - Rolling Is there a likelihood that the patient will require additional services to return to the preadmission environment? : Yes Baseline cognitive status: : *Oriented to person, place, situation, time and present Results of this evaluation have been discussed with: : Significant other Patient with capacity for self-care or can be cared for in same environment as prior to hospitalization? : Yes Physical environment modification needed / anticipated for discharge: : No Preadmission facility can/cannot provide post hospital level of care needs: : Can - at lower level of care than preadmission Medication Management: : Patient states can afford medications Pharmacy name(s): : [facility] Planned post hospital services available for patient? : Yes Does Patient have transportation to get home and to follow-up medical appointments when discharged from the hospital? : Yes Planned post hospital services covered by insurance plan? : Yes Would patient like to participate in any Care Coordination programs (if applicable): : Not applicable Does the patient have electricity at home? : Yes Does the patient have running water in their house? : Yes Equipment in use: : None Mental health screen: : No mental health history Psychosocial status: : Independent adult (65+) Abuse/Neglect: : None Resources / Services in place: : None DCP Re-evaluation QUESTION: ANSWER Would patient like to participate in any Care Coordination programs (if applicable): : Not applicable PATIENT: JORGE CROWLEY ENCOUNTER: [id number] MEDICAL RECORD#: [id number] ADMISSION DATE: 11/03/2020 DISCHARGE DATE: 11/13/2020 ATTENDING MD: ZENON MCKEON : AGE: 75 MARITAL STATUS: M DC PLAN ID: [id number] FACILITY: [facility] PRINTED ON: 11/14/20 13:15 CT All edits/amendments must be made on the electronic document DICTATION DATE: 11/14/201314 APARTMENT ASSISTANT MANAGER: RAFFY 11/14/201314 RPT#: [id number] DC DATE:11/13/20 STATUS: DIS IN [facility] [address] [place] [address] END OF REPORT
--- NOTE | 2020-11-15 09:28 | MORECARE ---
CASE MANAGEMENT DISCHARGE SUMMARY PATIENT: JORGE CROWLEY UNIT: [id number] ADM DATE: 11/03/20 AGE: 75 : 43 SEX: M ROOM/BED: D.2304 AUTHOR: LEA,DOC PHYSICIAN: REFERRING PHYSICIAN: ZENON FARRIS MD DATE OF SERVICE: 11/15/20 Case Management Discharge Planning Summary COMMENTS ENTERED DATE: 11/13/20 16:34 CT COMMENT TYPE: Discharge Planning REVIEWER: Gina Gomes [facility] Spoke with [facility] about referral. Faxed records as requested. Informed patient and his that agency accepted referral and will call them to set up time for admission. Patient and verbalized understanding and satisfaction with discharge planning. ENTERED DATE: 11/13/20 15:34 CT COMMENT TYPE: Discharge Planning REVIEWER: Gina Gomes After obtaining verbal consent, CM met with patient and spouse to discuss discharge planning / needs. Patient states his plan is to discharge to home where he and his live. States he will need home health for therapy. Walker from [facility] in patient room. States home environment is safe. States his will transport him home upon hospital discharge. States Dr. Ivan is his PCP. CM called Dr. Ivan's office. Obtained order for home health services. Patient signed THAI for [facility]. Copy on chart. CM called and left message with [facility] to return call about referral. CM explained and served DC IMM. Copy on chart. Patient and deny and other discharge planning needs at this time. CM will follow up with [facility]. ENTERED DATE: 11/12/20 18:50 CT COMMENT TYPE: Discharge Planning REVIEWER: Zita Pineda CM notified that patient is in need of walker upon discharge THAI completed for DME. CM sent order and referral to [facility] for walker. DCP REVIEW SUMMARY ANTICIPATED D/C DATE: EXPECTED LOS : CASE STATUS: DCP Initiated INITIAL REVIEW: 11/03/2020 INITIAL REVIEWER: Zita Pineda FINAL DISCHARGE DISPOSITION: : FINAL REVIEWER: FINAL REVIEW DATE: DCP Focus Questions & Answers DCP Screen QUESTION: ANSWER High Risk Factors: : None Walking limitation: Patient stated self rated walking limitation present? : Yes Age: : 63 - 77 Prior living environment: : Lives with others Disability ranking: : Grade 2: Slight disability DCP Evaluation QUESTION: ANSWER Patient gives permission to discuss discharge plans with: (name, relationship and number) : Hannah Crowley Patient's ability to cope with chronic illness : a. Adequate (0-3 ED visits in 6 mos., adequate financial resources, attends scheduled appts.) Patient and/or caregiver agree upon recommended discharge plan? : Yes Family / Caregiver's ability to cope with chronic illness: : a. Adequate (ability to meet patient's medical needs, ensures patient attends medical appts.) Patient's current cognitive status: : *Oriented to person, place, situation, time and present Family / Caregiver's ability to cope with chronic illness: : a. Adequate (ability to meet patient's medical needs, ensures patient attends medical appts.) Physical Status: : Independent with ADL's Does the patient have the ability to pay for or attain post discharge needs / services? : Yes Functional screen assessment: : Basic needs can adequately be met by self Living Arrangements: : Home with Spouse/Significant Other Equipment needed for post hospitalization: : Walker - Rolling Is there a likelihood that the patient will require additional services to return to the preadmission environment? : Yes Baseline cognitive status: : *Oriented to person, place, situation, time and present Results of this evaluation have been discussed with: : Significant other Patient with capacity for self-care or can be cared for in same environment as prior to hospitalization? : Yes Physical environment modification needed / anticipated for discharge: : No Preadmission facility can/cannot provide post hospital level of care needs: : Can - at lower level of care than preadmission Medication Management: : Patient states can afford medications Pharmacy name(s): : [facility] Planned post hospital services available for patient? : Yes Does Patient have transportation to get home and to follow-up medical appointments when discharged from the hospital? : Yes Planned post hospital services covered by insurance plan? : Yes Would patient like to participate in any Care Coordination programs (if applicable): : Not applicable Does the patient have electricity at home? : Yes Does the patient have running water in their house? : Yes Equipment in use: : None Mental health screen: : No mental health history Psychosocial status: : Independent adult (65+) Abuse/Neglect: : None Resources / Services in place: : None DCP Re-evaluation QUESTION: ANSWER Would patient like to participate in any Care Coordination programs (if applicable): : Not applicable PATIENT: JORGE CROWLEY ENCOUNTER: [id number] MEDICAL RECORD#: [id number] ADMISSION DATE: 11/03/2020 DISCHARGE DATE: 11/13/2020 ATTENDING MD: ZENON MCKEON : AGE: 75 MARITAL STATUS: M DC PLAN ID: [id number] FACILITY: [facility] PRINTED ON: 11/15/20 9:28 CT All edits/amendments must be made on the electronic document DICTATION DATE: 11/15/20927 ASSEMBLY LEADER: RAFFY 11/15/20927 RPT#: [id number] DC DATE:11/13/20 STATUS: DIS IN [facility] [address] [place] [address] END OF REPORT
== END 2020-11-13 18:22 | disposition home health service (06) | DRG 236 ==
LOC: D.CVICU 05:03 → D.ICU 05:03 → D.SDCHOLD 05:03 → D.CVICU 09:51 → D.SDCHOLD 11:00 → D.ICU 11-07 14:38
PROVIDERS: Emergency Medicine; Internal Medicine Pulmonary Disease; ADMIT Thoracic Surgery (Cardiothoracic Vascular Surgery); ATTEND Thoracic Surgery (Cardiothoracic Vascular Surgery)
PROC: 03CK0ZZ Extirpation of Matter from Right Internal Carotid Artery, Open Approach (ICD-10-PCS; 2020-11-03)
PROC: 021109W Bypass Coronary Artery, Two Arteries from Aorta with Autologous Venous Tissue, Open Approach (ICD-10-PCS; 2020-11-06)
PROC: 06BP4ZZ Excision of Right Saphenous Vein, Percutaneous Endoscopic Approach (ICD-10-PCS; 2020-11-06)
PROC: 0JB10ZZ Excision of Face Subcutaneous Tissue and Fascia, Open Approach (ICD-10-PCS; 2020-11-06)
PROC: 0210099 Bypass Coronary Artery, One Artery from Left Internal Mammary with Autologous Venous Tissue, Open Approach (ICD-10-PCS; principal; 2020-11-06 07:30)
DX: I25.10 Atherosclerotic heart disease of native coronary artery without angina pectoris (principal); J98.11 Atelectasis; J90 Pleural effusion, not elsewhere classified; N17.9 Acute kidney failure, unspecified; D62 Acute posthemorrhagic anemia; I65.23 Occlusion and stenosis of bilateral carotid arteries; I10 Essential (primary) hypertension; E78.5 Hyperlipidemia, unspecified; K21.9 Gastro-esophageal reflux disease without esophagitis; J44.9 Chronic obstructive pulmonary disease, unspecified

== ENCOUNTER → 2020-11-22 10:34 | Outpatient (CLI) | payer MEDICARE ==
[2020-11-06 10:50] VITALS: BMI 33.6
[~2020-11-22 10:34] MED LIST changes: +NIFEREX-150 CAP1 CA3 PO; +PERCOCET 5-3251 TAB PO; +TOPROL XL25 MG PO; +ZINC50 MG
[2020-11-22 11:20] LABS: ANION GAP 13.6 mmol/L (8-16); CALCIUM 9.3 mg/dL (8.5-10.1); CARBON DIOXIDE 25.9 mmol/L (21.0-32.0); CREATININE - SERUM 1.1 mg/dL (0.6-1.3); POTASSIUM - SERUM 4.5 mmol/L (3.5-5.1)
[2020-11-22 11:22] LABS: BASOPHILS 0.2 % (0-2); EOSINOPHILS 1.8 % (0-7); HEMATOCRIT 36.3 % (42.0-54.0); HEMOGLOBIN 11.3 g/dL (13.5-17.5); IMMATURE GRANULOCYTES 0.2 % (0-5); LYMPHOCYTE ABS# 0.95 10x3/uL (1.32-3.57); LYMPHOCYTES 11.7 % (15-50); MCH 25.7 pg (26.0-34.0); MCHC 31.1 g/dL (31.0-37.0); MCV 82.7 fL (80.0-100.0); MEAN PLATELET VOLUME 9.4 fL (7.4-10.4); MONOCYTES 10.8 % (2-11); NEUTROPHIL ABS# 6.11 10x3/uL (1.78-5.38); NEUTROPHILS 75.3 % (40-80); RBC 4.39 10x6/uL (4.20-6.10); RDW 16.6 % (11.5-14.5); WBC 8.1 10x3/uL (4.8-10.8)
[2020-11-22 11:34] LABS: PLATELET COUNT 585 10x3/uL (130-400)
== END | disposition home or self-care (01) ==
LOC: D.RAD 10:34
PROVIDERS: ATTEND Thoracic Surgery (Cardiothoracic Vascular Surgery)
DX: Z48.812 Encounter for surgical aftercare following surgery on the circulatory system (principal)

== ENCOUNTER 2021-01-09 08:52 | Inpatient (IN) | payer MEDICARE ==
[2021-01-08 12:35] LABS: HEMATOCRIT 38.6 % (42.0-54.0); HEMOGLOBIN 12.5 g/dL (13.5-17.5); MCH 25.2 pg (26.0-34.0); MCHC 32.3 g/dL (31.0-37.0); MCV 77.9 fL (80.0-100.0); MEAN PLATELET VOLUME 7.2 fL (7.4-10.4); RBC 4.96 10x6/uL (4.20-6.10); RDW 15.6 % (11.5-14.5); WBC 8.3 10x3/uL (4.8-10.8)
[2021-01-08 12:48] LABS: APTT 33.2 SECONDS (22.8-39.4); BILIRUBIN NEGATIVE (NEGATIVE); INR 1.15 (0.85-1.17); KETONE NEGATIVE mg/dL (< 1+); NITRITE NEGATIVE (NEGATIVE); PROTIME 13.6 SECONDS (11.6-15.0); UROBILINOGEN NORMAL mg/dL (< 2); WHITE CELLS - URINE <1 HPF (0-1)
[2021-01-08 12:49] LABS: ALBUMIN 3.8 g/dL (3.4-5.0); ANION GAP 14.5 mmol/L (8-16); BILIRUBIN - TOTAL 0.4 mg/dL (0.2-1.3); CALCIUM 9.2 mg/dL (8.5-10.1); CARBON DIOXIDE 26.5 mmol/L (21.0-32.0); CREATININE - SERUM 1.1 mg/dL (0.6-1.3); PROTEIN - SERUM 7.7 g/dL (6.4-8.2)
[~2021-01-09] VITALS: Ht 175.3 cm; Wt 95.6 kg
[2021-01-10] VITALS (14 sets, daily range): BP systolic 113–147; BP diastolic 47–85; BMI 31.0; BMI 32.1
--- NOTE | 2021-01-10 14:11 | NUR ---
CVL AND ARTERIAL LINE BY YOSEF RODRIGUEZ.
--- NOTE | 2021-01-10 16:52 | NUR ---
PATIENT ARRIVED AT UNIT 1543 A&O NO NEURO DEFICITS NOTED. SEE ASSESSMENT FOR DETAILS
[2021-01-11] VITALS (65 sets, daily range): BP systolic 96–169; BP diastolic 36–92; Ht 175.3 cm; Wt 95.6 kg
[2021-01-11 05:43] LABS: BASOPHILS 0.1 % (0-2); HEMATOCRIT 30.8 % (42.0-54.0); HEMOGLOBIN 10.1 g/dL (13.5-17.5); LYMPHOCYTES 9.6 % (15-50); MCH 25.5 pg (26.0-34.0); MCHC 32.8 g/dL (31.0-37.0); MCV 77.7 fL (80.0-100.0); MEAN PLATELET VOLUME 7.7 fL (7.4-10.4); MONOCYTES 9.4 % (2-11); NEUTROPHILS 79.9 % (40-80); RBC 3.96 10x6/uL (4.20-6.10); RDW 15.1 % (11.5-14.5); WBC 10.5 10x3/uL (4.8-10.8)
[2021-01-11 05:46] LABS: ALKALINE PHOSPHATASE 69 U/L (30-120); ALT (SGPT) 19 U/L (10-68); BILIRUBIN - TOTAL 0.68 mg/dL (0.2-1.3); CALC OSMOLALITY 279 mosm/kg (275-300); CALCIUM 8.2 mg/dL (8.5-10.1); CARBON DIOXIDE 26.7 mmol/L (21.0-32.0); CHLORIDE - SERUM 104 mmol/L (98-107); CREATININE - SERUM 0.9 mg/dL (0.6-1.3); GLUCOSE 102 mg/dL (74-106); MAGNESIUM - SERUM 2.1 mg/dL (1.8-2.4); POTASSIUM - SERUM 3.9 mmol/L (3.5-5.1); PROTEIN - SERUM 6.2 g/dL (6.4-8.2); SODIUM 140 mmol/L (136-145); UREA NITROGEN 14 mg/dL (7-18); eGFR NON AFRICAN AMERICAN 87 mL/min (90-120)
[2021-01-11 06:00] LABS: PLATELET COUNT 339 10x3/uL (130-400)
--- NOTE | 2021-01-11 07:10 | NUR ---
0330 - PATIENT'S ART LINE PRESSURE BEGAN INCREASING, BUT WAS NOT CORRELATING TO CUFF PRESSURE. ART LINE WAS ZEROED AND SBP REMAINED IN 170'S. NITRO DRIP WAS INCREASED TO 30MCG/MIN AND NEOSYNEPHERINE DRIP WAS RESTARTED WITH NO CHANGE IN SBP. 0350 - CLEVEPREX DRIP WAS STARTED AND TITRATED ACCORDING TO PROTOCOL TO A RATE OF 4MG/HR. PATIENT'S SBP WAS BROUGHT DOWN TO 120'S AND CONTINUED TO BE MONITORED FOR ANY NECESSARY TITRATION OF MEDICATIONS.
--- NOTE | 2021-01-11 08:48 | OP ---
PATIENT NAME: JORGE CROWLEY MEDICAL RECORD: [id number] :41 [facility] D.CV06 ADMISSION DATE:01/10/21 SURGEON: SEAN FARRIS MD DATE OF OPERATION: 01/10/2021 SURGEON: Sean Farris MD. PROCEDURE PERFORMED: Left carotid endarterectomy. PREOPERATIVE DIAGNOSIS: Left carotid stenosis and coronary artery disease. POSTOPERATIVE DIAGNOSIS: Left carotid stenosis and coronary artery disease. ANESTHESIA: General endotracheal anesthesia. ESTIMATED BLOOD LOSS: 10 cc. COMPLICATIONS: None. SPECIMENS: Plaque. CONDITION: Stable. DISPOSITION: CV ICU. OPERATIVE FINDINGS: 1. Discrete calcified plaque in the proximal internal carotid with circumferential calcification of the carotid bulb. The plaque feathered well distally. The plaque was tacked posteriorly and a CorMatrix patch was used for closure. 2. Neurologically intact to intensive care. INDICATION: Left carotid stenosis. DESCRIPTION OF PROCEDURE: The patient was brought to the operating suite. General anesthesia was obtained. The patient was prepped and draped. An oblique incision was made in the left neck, taken down through the subcutaneous tissue and large facial venous branches were divided between ligatures and suture ligatures. The common carotid was dissected out and encircled with umbilical tape. The external carotid and thyroid branches were dissected out and encircled with vessel loops. The hypoglossal nerve was identified and kept out of harm's way and the internal carotid was dissected out distally to a relatively normal region of the internal carotid. Heparin was given and after the heparin had circulated backbleeding was controlled on the internal carotid with a bulldog clamp and flow with a vascular clamp. Backbleeding on the external carotid and thyroid branch with vessel loops. Cerebral oximetry and EEG were monitored for 2 minutes after clamping without change and therefore an arteriotomy was made in the common carotid artery taken out through the region of dense calcification into a relatively normal region of the internal carotid. The plaque was divided in the common carotid artery with an eversion endarterectomy of the external carotid and distally the plaque feathered well. Thorough irrigation was undertaken. All loose bits of debris were removed. The plaque was tacked to the posterior wall in the internal carotid. The patch was fashioned to appropriate size and sutured along the edge of the arteriotomy. Prior to completing the anastomosis, backbleeding was allowed from all 3 major OPERATIVE REPORT [id number] JORGE CROWLEY vessels and the anastomosis was completed after flushing the endarterectomy bed again with heparinized saline. Flow was restored first to the external carotid and then to the internal carotid. Interrupted patch sutures were used for hemostasis. Protamine was given. A drain was placed through a separate stab wound. Thorough antibiotic irrigation was performed. The neck was closed in 3 layers. Dermabond of the skin. Anesthesia reversed. The patient to ICU, neurologically intact. TRANSINT:[id number] Voice Confirmation ID: [id number] DOCUMENT ID: [id number] SEAN FARRIS MD at 0848 CC: ARABELLA ROY M.D. [id number] DICTATION DATE: 01/10/211740 DEPOSITING MACHINE OPERATOR: 01/10/212029 ADM IN [facility] [address] [place] [address]
--- NOTE | 2021-01-11 11:07 | NUR ---
1040 DC ARMIN DRAIN PER DR FARRIS
[2021-01-11] MEDS ORDERED: PLAVIX75 MG PO (12:00)
[2021-01-11] MEDS ORDERED: PROTONIX40 MG PO (12:07)
--- NOTE | 2021-01-11 16:54 | NUR ---
1500 DC'D JOSÉ PER VERBAL ORDER DR FARRIS
--- NOTE | 2021-01-11 16:54 | NUR ---
1500 LIAN'Zahira LAI PER VERBAL ORDER DR FARRIS
[2021-01-12] VITALS (16 sets, daily range): BP systolic 120–159; BP diastolic 65–99
[2021-01-12 05:34] LABS: BASOPHILS 0.1 % (0-2); EOSINOPHILS 2.9 % (0-7); HEMOGLOBIN 10.2 g/dL (13.5-17.5); LYMPHOCYTES 9.5 % (15-50); MCH 25.4 pg (26.0-34.0); MCV 77.1 fL (80.0-100.0); MEAN PLATELET VOLUME 7.7 fL (7.4-10.4); MONOCYTES 11.7 % (2-11); NEUTROPHILS 75.8 % (40-80); PLATELET COUNT 332 10x3/uL (130-400); RBC 4.02 10x6/uL (4.20-6.10); RDW 15.2 % (11.5-14.5); WBC 9.9 10x3/uL (4.8-10.8)
[2021-01-12 05:53] LABS: ALBUMIN 2.9 g/dL (3.4-5.0); ALKALINE PHOSPHATASE 70 U/L (30-120); ALT (SGPT) 16 U/L (10-68); BILIRUBIN - TOTAL 0.45 mg/dL (0.2-1.3); CALC OSMOLALITY 276 mosm/kg (275-300); CALCIUM 7.9 mg/dL (8.5-10.1); CARBON DIOXIDE 26.2 mmol/L (21.0-32.0); CHLORIDE - SERUM 105 mmol/L (98-107); CREATININE - SERUM 0.9 mg/dL (0.6-1.3); GLUCOSE 99 mg/dL (74-106); MAGNESIUM - SERUM 1.9 mg/dL (1.8-2.4); POTASSIUM - SERUM 3.7 mmol/L (3.5-5.1); PROTEIN - SERUM 6.4 g/dL (6.4-8.2); SODIUM 139 mmol/L (136-145); UREA NITROGEN 11 mg/dL (7-18); eGFR NON AFRICAN AMERICAN 87 mL/min (90-120)
--- NOTE | 2021-01-12 11:21 | NUR ---
PT AMB IN SELF 120 FT WITH TELE. STEADY GAIT.
[2021-01-12] MEDS ORDERED: ULTRAM50 MG PO (14:52)
--- NOTE | 2021-01-12 16:44 | NUR ---
PT DC. DC INSTRUCTIONS GIVEN BY LUKAS AND PHILOMENA BY THIS RN.
[2021-01-13] MEDS ORDERED: HYDROCODON-ACE1 EAC7 PO ×2 (18:27→18:42)
[2021-01-13] MEDS ORDERED: CEPHALEXIN500 M1 PO ×2 (18:27→18:42)
== END 2021-01-12 16:45 | disposition home or self-care (01) | DRG 39 ==
LOC: D.SDCHOLD 08:52 → D.CVICU 01-10 09:05 → D.SDCHOLD 01-10 09:05 → D.CVICU 01-10 15:02
PROVIDERS: Family Medicine; ADMIT Thoracic Surgery (Cardiothoracic Vascular Surgery); ATTEND Thoracic Surgery (Cardiothoracic Vascular Surgery)
PROC: 03UL0JZ Supplement Left Internal Carotid Artery with Synthetic Substitute, Open Approach (ICD-10-PCS; 2021-01-10)
PROC: 03CL0ZZ Extirpation of Matter from Left Internal Carotid Artery, Open Approach (ICD-10-PCS; principal; 2021-01-10 11:00)
DX: I65.22 Occlusion and stenosis of left carotid artery (principal); I25.10 Atherosclerotic heart disease of native coronary artery without angina pectoris; I10 Essential (primary) hypertension; E78.5 Hyperlipidemia, unspecified; J44.9 Chronic obstructive pulmonary disease, unspecified; K21.9 Gastro-esophageal reflux disease without esophagitis; Z87.891 Personal history of nicotine dependence; D50.9 Iron deficiency anemia, unspecified

== ENCOUNTER 2021-01-13 12:36 | Emergency (ER) | payer MEDICARE ==
[~2021-01-13] VITALS: Ht 175.3 cm; Wt 90.9 kg
[~2021-01-13 12:36] MED LIST changes: +PLAVIX75 MG PO; +PROTONIX40 MG PO; +ULTRAM50 MG PO
[2021-01-13 12:47] VITALS: BP 145/74; Ht 175.3 cm; Wt 90.9 kg
[2021-01-13 13:27] LABS: APTT 35.5 SECONDS (22.8-39.4); INR 1.24 (0.85-1.17); PROTIME 14.5 SECONDS (11.6-15.0)
[2021-01-13 13:30] LABS: CALC OSMOLALITY 277 mosm/kg (275-300); CALCIUM 8.5 mg/dL (8.5-10.1); CARBON DIOXIDE 24.5 mmol/L (21.0-32.0); CHLORIDE - SERUM 102 mmol/L (98-107); GLUCOSE 125 mg/dL (74-106); POTASSIUM - SERUM 3.9 mmol/L (3.5-5.1); SODIUM 138 mmol/L (136-145); eGFR NON AFRICAN AMERICAN 77 mL/min (90-120)
[2021-01-13 13:31] LABS: BASOPHILS 0.1 % (0-2); EOSINOPHILS 2.7 % (0-7); HEMOGLOBIN 11.1 g/dL (13.5-17.5); LYMPHOCYTES 9.7 % (15-50); MCH 25.1 pg (26.0-34.0); MCHC 32.6 g/dL (31.0-37.0); MEAN PLATELET VOLUME 7.4 fL (7.4-10.4); MONOCYTES 13.4 % (2-11); NEUTROPHILS 74.1 % (40-80); PLATELET COUNT 354 10x3/uL (130-400); RBC 4.42 10x6/uL (4.20-6.10); RDW 15.4 % (11.5-14.5); UREA NITROGEN 14 mg/dL (7-18); WBC 10.4 10x3/uL (4.8-10.8)
[2021-01-13 13:45] LABS: ALBUMIN 3.2 g/dL (3.4-5.0); ALKALINE PHOSPHATASE 82 U/L (30-120); ALT (SGPT) 24 U/L (10-68); BILIRUBIN - TOTAL 0.74 mg/dL (0.2-1.3); CKMB 0.6 U/L (0.0-3.6); CREATINE KINASE 71 UL (21-232); PROTEIN - SERUM 7.1 g/dL (6.4-8.2); TROPONIN-I < 0.017 ng/mL (0.000-0.060)
[2021-01-13 17:26] LABS: BILIRUBIN NEGATIVE (NEGATIVE); KETONE NEGATIVE mg/dL (< 1+); NITRITE NEGATIVE (NEGATIVE); PH 5.5 (5.0-8.0); UROBILINOGEN NORMAL mg/dL (< 2); WHITE CELLS - URINE 1 HPF (0-1)
[2021-01-13] MEDS ORDERED: HYDROCODON-ACE1 EAC7 PO ×2 (18:27→18:42)
[2021-01-13] MEDS ORDERED: CEPHALEXIN500 M1 PO ×2 (18:27→18:42)
== END 2021-01-13 19:00 | disposition home or self-care (01) ==
LOC: D.ER 12:36
PROVIDERS: Family Medicine
DX: T81.49XA Infection following a procedure, other surgical site, initial encounter (principal); D64.9 Anemia, unspecified; R73.9 Hyperglycemia, unspecified; R22.1 Localized swelling, mass and lump, neck; I10 Essential (primary) hypertension; Z95.1 Presence of aortocoronary bypass graft; I25.10 Atherosclerotic heart disease of native coronary artery without angina pectoris; E78.5 Hyperlipidemia, unspecified; K21.9 Gastro-esophageal reflux disease without esophagitis; J44.9 Chronic obstructive pulmonary disease, unspecified; J45.909 Unspecified asthma, uncomplicated

== ENCOUNTER 2021-01-22 14:43 | Inpatient (IN) | payer MEDICARE ==
[~2021-01-22] VITALS: Ht 175.3 cm; Wt 95.1 kg
[~2021-01-22 14:43] MED LIST changes: +CEPHALEXIN500 M1 PO; +HYDROCODON-ACE1 EAC7 PO
[2021-01-22 17:03] LABS: BASOPHILS 0.3 % (0-2); EOSINOPHILS 2.2 % (0-7); HEMATOCRIT 27.2 % (42.0-54.0); HEMOGLOBIN 8.7 g/dL (13.5-17.5); MCH 24.9 pg (26.0-34.0); MCV 77.9 fL (80.0-100.0); MEAN PLATELET VOLUME 7.4 fL (7.4-10.4); MONOCYTES 7.7 % (2-11); NEUTROPHILS 69.8 % (40-80); RBC 3.48 10x6/uL (4.20-6.10); RDW 15.5 % (11.5-14.5)
[2021-01-22 17:07] LABS: PLATELET COUNT 443 10x3/uL (130-400)
[2021-01-22 17:11] LABS: CALC OSMOLALITY 292 mosm/kg (275-300); CALCIUM 8.7 mg/dL (8.5-10.1); CHLORIDE - SERUM 107 mmol/L (98-107); GLUCOSE 107 mg/dL (74-106); POTASSIUM - SERUM 3.9 mmol/L (3.5-5.1); SODIUM 143 mmol/L (136-145); UREA NITROGEN 36 mg/dL (7-18); eGFR NON AFRICAN AMERICAN 77 mL/min (90-120)
[2021-01-22 17:24] LABS: ALBUMIN 3.4 g/dL (3.4-5.0); ALKALINE PHOSPHATASE 76 U/L (30-120); ALT (SGPT) 30 U/L (10-68); BILIRUBIN - TOTAL 0.26 mg/dL (0.2-1.3)
[2021-01-22 17:25] LABS: TROPONIN-I < 0.017 ng/mL (0.000-0.060)
--- NOTE | 2021-01-22 18:53 | NUR ---
REPORT CALLED TO EDUARD RN, ROOM IS NOT CLEAN SHE WILL CALL WHEN IT IS.
--- NOTE | 2021-01-22 19:20 | NUR ---
REPORT RECEIVED FROM LIZANDRO BARNEY AND CARE TRANSFERRED TO SAVITA SANDRA
--- NOTE | 2021-01-22 19:46 | NUR ---
ROOM READY AT 194
[2021-01-22 22:00] VITALS: BP 156/78; BMI 29.9
[2021-01-22 22:01] LABS: RETIC 3.61 % (0.45-2.28)
[2021-01-22 22:10] LABS: % SATURATION 6 % (15-55); INR 1.29 (0.85-1.17); IRON 24 ug/dl (35-150); PROTIME 14.9 SECONDS (11.6-15.0); TOTAL IRON BIND CAPACITY 396 ug/dl (260-445); UNSAT IRON BIND CAPACITY 372 ug/dl (150-375)
[2021-01-22 22:30] LABS: HEMATOCRIT 25.6 % (42.0-54.0); HEMOGLOBIN 8.1 g/dL (13.5-17.5)
--- NOTE | 2021-01-22 23:32 | NUR ---
RECIEVED REPORT FROMER. ARRIVED TO FLOOR IN W/C. TRANSFERED SELF TO BED. SPOUSE AT BEDSIDE. ALERT AND ORIENTED. ASSESSMENT CCOMPLETED.
[2021-01-23] VITALS (8 sets, daily range): BP systolic 99–136; BP diastolic 52–70; Ht 175.3 cm; Wt 95.1 kg
[2021-01-23 05:42] LABS: EOSINOPHILS 2.1 % (0-7)
[2021-01-23 05:49] LABS: BASOPHILS 0.4 % (0-2); HEMATOCRIT 21.2 % (42.0-54.0); LYMPHOCYTES 14.9 % (15-50); MCH 25.5 pg (26.0-34.0); MCHC 32.7 g/dL (31.0-37.0); MCV 77.9 fL (80.0-100.0); MEAN PLATELET VOLUME 7.8 fL (7.4-10.4); MONOCYTES 7.3 % (2-11); NEUTROPHILS 75.3 % (40-80); PLATELET COUNT 393 10x3/uL (130-400); RDW 15.1 % (11.5-14.5); WBC 8.6 10x3/uL (4.8-10.8)
[2021-01-23 06:20] LABS: ALBUMIN 2.7 g/dL (3.4-5.0); ANION GAP 14.5 mmol/L (8-16); BILIRUBIN - TOTAL 0.24 mg/dL (0.2-1.3); CALCIUM 8.1 mg/dL (8.5-10.1); CARBON DIOXIDE 23.6 mmol/L (21.0-32.0); CREATININE - SERUM 1.1 mg/dL (0.6-1.3); POTASSIUM - SERUM 4.1 mmol/L (3.5-5.1); PROTEIN - SERUM 5.6 g/dL (6.4-8.2)
[2021-01-23 06:26] LABS: HEMOGLOBIN 6.9 g/dL (13.5-17.5); RBC 2.72 10x6/uL (4.20-6.10)
--- NOTE | 2021-01-23 06:33 | NUR ---
HGB RECIEVED THIS A.M.. RESULTS CRITICAL 6.9 HGB. NOTIFIED LASHONDA BLAKE WITH N.O FOR TYPE AND CROSS AND 2 UNITS OF PRBC. WILL NOTIFY DR. MATT.
[2021-01-23 08:55] LABS: HEMATOCRIT 21.5 % (42.0-54.0)
[2021-01-23 09:00] LABS: HEMOGLOBIN 6.6 g/dL (13.5-17.5)
--- NOTE | 2021-01-23 10:49 | NUR ---
After obtaining first unit PRBC's, verifying at bedside with 2 RNs, started giving blood as ordered, ligia well at this time.
--- NOTE | 2021-01-23 17:54 | NUR ---
ASSUMED PT CARE. AWAITING CLEANING AND TRANSFER TO ICU BED 2301. L SLOAN PREVIOUSLY CALLED REPORT TO ASIF IN ICU. VSS.
--- NOTE | 2021-01-23 19:20 | NUR ---
1848 TRANSFERRED VIA BED TO 2301 IN STABLE CONDITION. UPDATE GIVEN TO DANA BARNEY
[2021-01-23 23:24] LABS: HEMATOCRIT 24.6 % (42.0-54.0); HEMOGLOBIN 7.7 g/dL (13.5-17.5)
[2021-01-23 23:42] LABS: BILIRUBIN NEGATIVE (NEGATIVE); KETONE NEGATIVE mg/dL (< 1+); NITRITE NEGATIVE (NEGATIVE); UROBILINOGEN NORMAL mg/dL (< 2)
[2021-01-24] VITALS (24 sets, daily range): BP systolic 93–141; BP diastolic 48–78
[2021-01-24 05:12] LABS: BASOPHILS 0.2 % (0-2); EOSINOPHILS 0.5 % (0-7); HEMATOCRIT 26.4 % (42.0-54.0); HEMOGLOBIN 8.7 g/dL (13.5-17.5); LYMPHOCYTES 10.9 % (15-50); MCH 25.8 pg (26.0-34.0); MCHC 32.8 g/dL (31.0-37.0); MCV 78.6 fL (80.0-100.0); MEAN PLATELET VOLUME 7.4 fL (7.4-10.4); MONOCYTES 7.8 % (2-11); NEUTROPHILS 80.6 % (40-80); PLATELET COUNT 362 10x3/uL (130-400); RDW 15.9 % (11.5-14.5); WBC 10.2 10x3/uL (4.8-10.8)
[2021-01-24 05:14] LABS: RBC 3.36 10x6/uL (4.20-6.10)
[2021-01-24 05:16] LABS: PLT FUNCT.(P2Y12) PLAVIX 85 PRU (194-418)
[2021-01-24 05:30] LABS: ALBUMIN 2.8 g/dL (3.4-5.0); ALKALINE PHOSPHATASE 62 U/L (30-120); ALT (SGPT) 22 U/L (10-68); CALC OSMOLALITY 296 mosm/kg (275-300); CARBON DIOXIDE 24.1 mmol/L (21.0-32.0); CHLORIDE - SERUM 111 mmol/L (98-107); GLUCOSE 116 mg/dL (74-106); POTASSIUM - SERUM 3.8 mmol/L (3.5-5.1); PROTEIN - SERUM 5.7 g/dL (6.4-8.2); SODIUM 145 mmol/L (136-145); UREA NITROGEN 31 mg/dL (7-18); eGFR NON AFRICAN AMERICAN 77 mL/min (90-120)
[2021-01-24 10:14] LABS: HEMATOCRIT 26.5 % (42.0-54.0); HEMOGLOBIN 8.7 g/dL (13.5-17.5)
--- NOTE | 2021-01-24 15:29 | OP ---
PATIENT NAME: JORGE CROWLEY MEDICAL RECORD: [id number] :41 LOCATION:D.[facility] D.2301 ADMISSION DATE:01/22/21 SURGEON: DENTON PINO MD DATE OF OPERATION: 01/23/2021 PROCEDURE: Upper endoscopy. PREOPERATIVE DIAGNOSIS: Anemia and melena in a patient who is on Plavix. MEDICATION: Propofol per anesthesia. Upper endoscopy was performed. The endoscope was advanced through the mouth and advanced to the second part of the duodenum. The entire examined esophagus was normal. In the gastric body was visualized a large clot in the fundus. Exam was continued into the gastric body and duodenum, which was normal. The scope was brought to the area of the fundus. The clot was very large and was obscuring the fundus. Therefore, decision was made to remove the clot using piecemeal fashion. The clot was removed with Irvin Net and therefore, decision was made to prophylactically intubate the patient for airway protection. After this clot was removed, there was an area of intermittent oozing with fresh blood. This appeared to be a punctate ulcer site versus a Dieulafoy lesion. This area was treated with 4 Endoclips. There was no bleeding after the procedure and the patient was easily extubated. FINAL DIAGNOSIS: Clot overlying the fundus. After this was removed visualized was an intermittently bleeding Dieulafoy lesion versus punctate ulcer. Four endoclips were used at this site and bleeding did stop. PLAN: Transfer patient to ICU. Continue IV PPI. Hold Plavix. Watch for any signs of rebleed. TRANSINT:[id number] Voice Confirmation ID: [id number] DOCUMENT ID: [id number] DENTON PINO MD at 1529 CC: [id number] DICTATION DATE: 01/23/21 1708 BIOFUELS PRODUCT DEVELOPMENT MANAGER: 01/23/21 194 ADM IN [facility] [address] [place] [address]
[2021-01-24 15:50] LABS: HEMATOCRIT 26.1 % (42.0-54.0); HEMOGLOBIN 8.5 g/dL (13.5-17.5)
[2021-01-24 22:06] LABS: HEMOGLOBIN 8.8 g/dL (13.5-17.5)
[2021-01-25] VITALS (17 sets, daily range): BP systolic 98–137; BP diastolic 52–73
[2021-01-25 04:41] LABS: BASOPHILS 0.2 % (0-2); EOSINOPHILS 3.6 % (0-7); HEMATOCRIT 27.2 % (42.0-54.0); LYMPHOCYTES 14.4 % (15-50); MCH 26.4 pg (26.0-34.0); MCHC 33.1 g/dL (31.0-37.0); MCV 79.8 fL (80.0-100.0); MEAN PLATELET VOLUME 7.4 fL (7.4-10.4); NEUTROPHILS 74.8 % (40-80); PLATELET COUNT 359 10x3/uL (130-400); RBC 3.41 10x6/uL (4.20-6.10); RDW 16.1 % (11.5-14.5); WBC 9.3 10x3/uL (4.8-10.8)
[2021-01-25 04:47] LABS: ALBUMIN 2.7 g/dL (3.4-5.0); ALKALINE PHOSPHATASE 56 U/L (30-120); ALT (SGPT) 24 U/L (10-68); BILIRUBIN - TOTAL 0.54 mg/dL (0.2-1.3); CALC OSMOLALITY 289 mosm/kg (275-300); CALCIUM 7.9 mg/dL (8.5-10.1); CARBON DIOXIDE 26.1 mmol/L (21.0-32.0); CHLORIDE - SERUM 110 mmol/L (98-107); GLUCOSE 90 mg/dL (74-106); POTASSIUM - SERUM 3.6 mmol/L (3.5-5.1); PROTEIN - SERUM 5.5 g/dL (6.4-8.2); SODIUM 144 mmol/L (136-145); eGFR NON AFRICAN AMERICAN 77 mL/min (90-120)
[2021-01-25 04:48] LABS: UREA NITROGEN 21 mg/dL (7-18)
--- NOTE | 2021-01-25 08:05 | NUR ---
SITTING UP IN BED AWAKE AT THIS TIME. DENIES ANY NEEDS. VSS. NO ACUTE DISTRESS NOTED. PERSONAL ITEMS AND CALL LIGHT IN REACH. WILL CONTINUE PLAN OF CARE.
--- NOTE | 2021-01-25 08:58 | NUR ---
Nutrition follow-up: Pt s/p EGD Diet order continues clear liquids Labs reviewed Wt: 209# Allergic to milk RDN will reassess pts progress toward nutrition goals in 3-5 days.
[2021-01-25 09:18] LABS: HEMATOCRIT 26.7 % (42.0-54.0); HEMOGLOBIN 8.8 g/dL (13.5-17.5)
--- NOTE | 2021-01-25 09:42 | NUR ---
PER DR DELVALLE, WILL WAIT TO TRANSFER TO FLOOR DEPENDING ON H&H RECHECK LEVELS SCHEDULED FOR 1529 TODAY, WILL CALL THIS PHYSICIAN WITH THE RESULTS.
--- NOTE | 2021-01-25 13:56 | NUR ---
CHG BATH PROVIDED BY PTS . TOTAL LINEN CHANGE PERFORMED. PT SITTING UP IN CHAIR BESIDE BED. TRANSFERRED VIA STAND BY ASSIST USING CANE. PT DENIES ANY NEEDS. VSS. WILL CONTINUE PLAN OF CARE.
[2021-01-25 15:05] LABS: HEMATOCRIT 28.2 % (42.0-54.0); HEMOGLOBIN 9.2 g/dL (13.5-17.5)
--- NOTE | 2021-01-25 15:27 | NUR ---
DR DELVALLE NOTIFIED OF NEW H&H RESULT, PHYSICIAN STATED OKAY TO TRANSFER TO THE FLOOR. ALSO ADVANCE DIET TO FULL LIQUID DIET.
--- NOTE | 2021-01-25 20:56 | NUR ---
PT TO ROOM 2120 VIA W/C FROM ICU
[2021-01-25 22:25] LABS: HEMOGLOBIN 8.9 g/dL (13.5-17.5)
[2021-01-26 02:18] VITALS: BP 109/55
[2021-01-26 06:21] LABS: ALBUMIN 2.7 g/dL (3.4-5.0); ALKALINE PHOSPHATASE 68 U/L (30-120); ALT (SGPT) 27 U/L (10-68); BILIRUBIN - TOTAL 0.61 mg/dL (0.2-1.3); CALC OSMOLALITY 281 mosm/kg (275-300); CARBON DIOXIDE 24.9 mmol/L (21.0-32.0); CHLORIDE - SERUM 108 mmol/L (98-107); CREATININE - SERUM 0.9 mg/dL (0.6-1.3); GLUCOSE 95 mg/dL (74-106); POTASSIUM - SERUM 3.5 mmol/L (3.5-5.1); PROTEIN - SERUM 5.6 g/dL (6.4-8.2); SODIUM 141 mmol/L (136-145); eGFR NON AFRICAN AMERICAN 87 mL/min (90-120)
[2021-01-26 06:25] LABS: BASOPHILS 0.2 % (0-2); EOSINOPHILS 5.6 % (0-7); HEMATOCRIT 26.1 % (42.0-54.0); HEMOGLOBIN 8.7 g/dL (13.5-17.5); LYMPHOCYTES 11.1 % (15-50); MCH 26.5 pg (26.0-34.0); MCHC 33.2 g/dL (31.0-37.0); MCV 79.9 fL (80.0-100.0); MEAN PLATELET VOLUME 7.4 fL (7.4-10.4); MONOCYTES 9.4 % (2-11); NEUTROPHILS 73.7 % (40-80); PLATELET COUNT 335 10x3/uL (130-400); RBC 3.26 10x6/uL (4.20-6.10); RDW 16.4 % (11.5-14.5); UREA NITROGEN 15 mg/dL (7-18); WBC 7.9 10x3/uL (4.8-10.8)
[2021-01-26 08:00] VITALS: BP 141/66
--- NOTE | 2021-01-26 08:00 | NUR ---
PT RECEIVED AWAKE AND ALERT IN BED. NO NEEDS AT PRESENT.
--- NOTE | 2021-01-26 10:59 | NUR ---
PT UP TO BATHROOM WITH CANE.
[2021-01-26 12:00] VITALS: BP 139/72
[2021-01-26 16:00] VITALS: BP 168/73
[2021-01-26 20:23] VITALS: BP 136/71
[2021-01-27 00:32] VITALS: BP 116/63
[2021-01-27 04:53] VITALS: BP 139/71
[2021-01-27 06:10] LABS: BASOPHILS 0.2 % (0-2); EOSINOPHILS 5.2 % (0-7); HEMATOCRIT 27.4 % (42.0-54.0); HEMOGLOBIN 9.1 g/dL (13.5-17.5); LYMPHOCYTES 10.8 % (15-50); MCH 26.8 pg (26.0-34.0); MCHC 33.1 g/dL (31.0-37.0); MEAN PLATELET VOLUME 7.7 fL (7.4-10.4); MONOCYTES 10.5 % (2-11); NEUTROPHILS 73.3 % (40-80); PLATELET COUNT 384 10x3/uL (130-400); RBC 3.39 10x6/uL (4.20-6.10); RDW 17.1 % (11.5-14.5); WBC 8.7 10x3/uL (4.8-10.8)
[2021-01-27 06:43] LABS: ALBUMIN 2.8 g/dL (3.4-5.0); ALKALINE PHOSPHATASE 75 U/L (30-120); ALT (SGPT) 24 U/L (10-68); BILIRUBIN - TOTAL 0.57 mg/dL (0.2-1.3); CALC OSMOLALITY 282 mosm/kg (275-300); CALCIUM 8.2 mg/dL (8.5-10.1); CARBON DIOXIDE 26.4 mmol/L (21.0-32.0); CHLORIDE - SERUM 107 mmol/L (98-107); CREATININE - SERUM 0.9 mg/dL (0.6-1.3); GLUCOSE 99 mg/dL (74-106); POTASSIUM - SERUM 3.5 mmol/L (3.5-5.1); SODIUM 142 mmol/L (136-145); UREA NITROGEN 13 mg/dL (7-18); eGFR NON AFRICAN AMERICAN 87 mL/min (90-120)
[2021-01-27 08:18] VITALS: BP 103/63
[2021-01-27 10:57] VITALS: BP 122/73
[2021-01-27 15:25] VITALS: BP 143/75
[2021-01-27 20:00] VITALS: BP 103/72
[2021-01-28 01:18] VITALS: BP 112/53
[2021-01-28 06:01] LABS: BASOPHILS 0.3 % (0-2); EOSINOPHILS 7.2 % (0-7); HEMOGLOBIN 8.9 g/dL (13.5-17.5); LYMPHOCYTES 13.7 % (15-50); MCH 26.4 pg (26.0-34.0); MCHC 32.9 g/dL (31.0-37.0); MCV 80.5 fL (80.0-100.0); MEAN PLATELET VOLUME 7.2 fL (7.4-10.4); NEUTROPHILS 67.8 % (40-80); PLATELET COUNT 353 10x3/uL (130-400); RBC 3.36 10x6/uL (4.20-6.10); RDW 16.3 % (11.5-14.5); WBC 7.1 10x3/uL (4.8-10.8)
[2021-01-28 06:35] LABS: ALBUMIN 2.6 g/dL (3.4-5.0); ALKALINE PHOSPHATASE 68 U/L (30-120); ALT (SGPT) 22 U/L (10-68); BILIRUBIN - TOTAL 0.61 mg/dL (0.2-1.3); CALC OSMOLALITY 280 mosm/kg (275-300); CARBON DIOXIDE 27.5 mmol/L (21.0-32.0); CHLORIDE - SERUM 107 mmol/L (98-107); CREATININE - SERUM 0.9 mg/dL (0.6-1.3); GLUCOSE 96 mg/dL (74-106); POTASSIUM - SERUM 3.7 mmol/L (3.5-5.1); PROTEIN - SERUM 5.5 g/dL (6.4-8.2); SODIUM 141 mmol/L (136-145); UREA NITROGEN 12 mg/dL (7-18); eGFR NON AFRICAN AMERICAN 87 mL/min (90-120)
[2021-01-28 08:00] VITALS: BP 121/67
[2021-01-28] MEDS ORDERED: PROTONIX40 MG PO (10:45)
[2021-01-28 12:00] VITALS: BP 145/70
--- NOTE | 2021-01-28 12:15 | MORECARE ---
CASE MANAGEMENT DISCHARGE SUMMARY PATIENT: JORGE CROWLEY UNIT: [id number] ADM DATE: 01/22/21 AGE: 75 : 43 SEX: M ROOM/BED: D.2120 AUTHOR: LEADOC PHYSICIAN: REFERRING PHYSICIAN: LUZMA DELVALLE DO DATE OF SERVICE: 01/28/21 Case Management Discharge Planning Summary DCP REVIEW SUMMARY ANTICIPATED D/C DATE: EXPECTED LOS : CASE STATUS: DCP Initiated INITIAL REVIEW: 01/22/2021 INITIAL REVIEWER: Agustin Saunders FINAL DISCHARGE DISPOSITION: : FINAL REVIEWER: FINAL REVIEW DATE: DCP Focus Questions & Answers QUESTION: ANSWER : PATIENT: JORGE CROWLEY ENCOUNTER: [id number] MEDICAL RECORD#: [id number] ADMISSION DATE: 01/22/2021 DISCHARGE DATE: ATTENDING MD: LUZMA LAWRENCE : AGE: 75 MARITAL STATUS: M DC PLAN ID: [id number] FACILITY: [facility] PRINTED ON: 01/28/21 12:14 CT All edits/amendments must be made on the electronic document DICTATION DATE: 01/28/21 121 ORACLE FUSION DEVELOPER: DM 01/28/21 1214 RPT#: [id number] DC DATE: STATUS: ADM IN [facility] [address] [place] [address] END OF REPORT
--- NOTE | 2021-01-28 12:24 | NUR ---
PATIENT AAOX4, RESP EVEN AND NON LABORED NO S/S OF DISTRESS, MEDICATIONS ADMINISTERED WITH NO COMPLICATIONS, PATIENT HAS DISCHARGE ORDERS, NO FURTHER NEEDS AT THIS TIME, SARMAD CORREA
--- NOTE | 2021-01-28 12:25 | MORECARE ---
CASE MANAGEMENT DISCHARGE SUMMARY PATIENT: JORGE CROWLEY UNIT: [id number] ADM DATE: 01/22/21 AGE: 75 : 41 SEX: M ROOM/BED: D.2120 AUTHOR: LEA,DOC PHYSICIAN: REFERRING PHYSICIAN: LUZMA DELVALLE DO DATE OF SERVICE: 01/28/21 Case Management Discharge Planning Summary COMMENTS ENTERED DATE: 01/28/21 12:18 CT COMMENT TYPE: Discharge Planning REVIEWER: Agustin Saunders CM met with patient to complete DC plan and to evaluate needs. Patient lives independently with his spouse, Hannah Crowley, . Patient stated that his home is safe and has electricity and running water. Patient stated that he is able to enter and move about his home without difficulty. Patient stated that he has no problems paying for medications and he fills his medications at both [facility] on [address] and [facility] in [place]. Patient stated that his primary care physician is Dr. Delvalle. At discharge, the patient plans to return home and feels this is a safe discharge. CM discussed availability of home health, rehab services, and medical equipment. Patient declined SNF, IPR, and DME but would like to resume [facility] health. [facility] stated that the patient is current. Clinical Documents faxed to home health agency. Patient voiced no other needs at this time and is satisfied with DC plan. Transportation provider at discharge will be with his spouse, Hannah Crowley. DC IMM delivered, explained, signed by the patient, and placed in chart. Signed form also left with the patient. CM will continue to follow and will assist as needed with dc plans/needs. DCP REVIEW SUMMARY ANTICIPATED D/C DATE: EXPECTED LOS : CASE STATUS: DCP Initiated INITIAL REVIEW: 01/22/2021 INITIAL REVIEWER: Agustin Saunders FINAL DISCHARGE DISPOSITION: : FINAL REVIEWER: FINAL REVIEW DATE: DCP Focus Questions & Answers DCP Evaluation QUESTION: ANSWER Patient's ability to cope with chronic illness : d. No chronic illness Patient gives permission to discuss discharge plans with: (name, relationship and number) : spouse, Hannah Crowley, Patient and/or caregiver agree upon recommended discharge plan? : Yes Family / Caregiver's ability to cope with chronic illness: : a. Adequate (ability to meet patient's medical needs, ensures patient attends medical appts.) Patient's current cognitive status: : *Oriented to person, place, situation, time and present Family / Caregiver's ability to cope with chronic illness: : a. Adequate (ability to meet patient's medical needs, ensures patient attends medical appts.) Physical Status: : Independent with ADL's Does the patient have the ability to pay for or attain post discharge needs / services? : Yes Functional screen assessment: : Basic needs can adequately be met by self Living Arrangements: : Home with Spouse/Significant Other Equipment needed for post hospitalization: : None Is there a likelihood that the patient will require additional services to return to the preadmission environment? : No Baseline cognitive status: : *Oriented to person, place, situation, time and present Patient with capacity for self-care or can be cared for in same environment as prior to hospitalization? : Yes Physical environment modification needed / anticipated for discharge: : No Medication Management: : Patient states can read and understand medication labels Medication Management: : Patient states can afford medications Pharmacy name(s): : both [facility] on [address] and [facility] in [place] Does Patient have transportation to get home and to follow-up medical appointments when discharged from the hospital? : Yes Would patient like to participate in any Care Coordination programs (if applicable): : Not applicable Does the patient have electricity at home? : Yes Does the patient have running water in their house? : Yes Equipment in use: : Cane - Single Leg Mental health screen: : No mental health history DCP Re-evaluation QUESTION: ANSWER Would patient like to participate in any Care Coordination programs (if applicable): : Not applicable PATIENT: JORGE CROWLEY ENCOUNTER: [id number] MEDICAL RECORD#: [id number] ADMISSION DATE: 01/22/2021 DISCHARGE DATE: ATTENDING MD: LUZMA LAWRENCE : AGE: 75 MARITAL STATUS: M DC PLAN ID: [id number] FACILITY: [facility] PRINTED ON: 01/28/21 12:25 CT All edits/amendments must be made on the electronic document DICTATION DATE: 01/28/211224 COMPRESSED AIR PILE DRIVER OPERATOR: RAFFY 01/28/215 RPT#: [id number] DC DATE: STATUS: ADM IN [facility] [address] [address] END OF REPORT
--- NOTE | 2021-01-30 16:49 | MORECARE ---
CASE MANAGEMENT DISCHARGE SUMMARY PATIENT: JORGE CROWLEY UNIT: [id number] ADM DATE: 01/22/21 AGE: 75 : 43 SEX: M ROOM/BED: D.2120 AUTHOR: LEADOC PHYSICIAN: REFERRING PHYSICIAN: LUZMA DELVALLE DO DATE OF SERVICE: 01/30/21 Case Management Discharge Planning Summary COMMENTS ENTERED DATE: 01/28/21 12:18 CT COMMENT TYPE: Discharge Planning REVIEWER: Agustin Saunders CM met with patient to complete DC plan and to evaluate needs. Patient lives independently with his spouse, Hannah Crowley, . Patient stated that his home is safe and has electricity and running water. Patient stated that he is able to enter and move about his home without difficulty. Patient stated that he has no problems paying for medications and he fills his medications at both [facility] on [address] and [facility] in [place]. Patient stated that his primary care physician is Dr. Delvalle. At discharge, the patient plans to return home and feels this is a safe discharge. CM discussed availability of home health, rehab services, and medical equipment. Patient declined SNF, IPR, and DME but would like to resume [facility] health. [facility] stated that the patient is current. Clinical Documents faxed to home health agency. Patient voiced no other needs at this time and is satisfied with DC plan. Transportation provider at discharge will be with his spouse, Hannah Crowley. DC IMM delivered, explained, signed by the patient, and placed in chart. Signed form also left with the patient. CM will continue to follow and will assist as needed with dc plans/needs. DCP REVIEW SUMMARY ANTICIPATED D/C DATE: EXPECTED LOS : CASE STATUS: DCP Initiated INITIAL REVIEW: 01/22/2021 INITIAL REVIEWER: Agustin Saunders FINAL DISCHARGE DISPOSITION: : FINAL REVIEWER: FINAL REVIEW DATE: DCP Focus Questions & Answers DCP Evaluation QUESTION: ANSWER Patient and/or caregiver agree upon recommended discharge plan? : Yes Patient's current cognitive status: : *Oriented to person, place, situation, time and present Patient's ability to cope with chronic illness : d. No chronic illness Patient gives permission to discuss discharge plans with: (name, relationship and number) : spouse, Hannah Crowley, Family / Caregiver's ability to cope with chronic illness: : a. Adequate (ability to meet patient's medical needs, ensures patient attends medical appts.) Does the patient have the ability to pay for or attain post discharge needs / services? : Yes Functional screen assessment: : Basic needs can adequately be met by self Family / Caregiver's ability to cope with chronic illness: : a. Adequate (ability to meet patient's medical needs, ensures patient attends medical appts.) Physical Status: : Independent with ADL's Equipment needed for post hospitalization: : None Is there a likelihood that the patient will require additional services to return to the preadmission environment? : No Living Arrangements: : Home with Spouse/Significant Other Patient with capacity for self-care or can be cared for in same environment as prior to hospitalization? : Yes Baseline cognitive status: : *Oriented to person, place, situation, time and present Physical environment modification needed / anticipated for discharge: : No Medication Management: : Patient states can afford medications Medication Management: : Patient states can read and understand medication labels Pharmacy name(s): : both [facility] on [address] and [facility] in [place] Does Patient have transportation to get home and to follow-up medical appointments when discharged from the hospital? : Yes Would patient like to participate in any Care Coordination programs (if applicable): : Not applicable Does the patient have electricity at home? : Yes Does the patient have running water in their house? : Yes Equipment in use: : Cane - Single Leg Mental health screen: : No mental health history DCP Re-evaluation QUESTION: ANSWER Would patient like to participate in any Care Coordination programs (if applicable): : Not applicable PATIENT: JORGE CROWLEY ENCOUNTER: [id number] MEDICAL RECORD#: [id number] ADMISSION DATE: 01/22/2021 DISCHARGE DATE: 01/28/2021 ATTENDING MD: LUZMA LAWRENCE : [id number] AGE: 75 MARITAL STATUS: M DC PLAN ID: [id number] FACILITY: [facility] PRINTED ON: 01/30/21 16:49 CT All edits/amendments must be made on the electronic document DICTATION DATE: 01/30/211648 PLANT BUYER: RAFFY 01/30/211648 RPT#: [id number] DC DATE:01/28/21 STATUS: DIS IN [facility] [address] [place] [address] END OF REPORT
--- NOTE | 2021-01-30 19:33 | MORECARE ---
CASE MANAGEMENT DISCHARGE SUMMARY PATIENT: JORGE CROWLEY UNIT: [id number] ADM DATE: 01/22/21 AGE: 75 : 43 SEX: M ROOM/BED: D.2120 AUTHOR: LEADOC PHYSICIAN: REFERRING PHYSICIAN: LUZMA DELVALLE DO DATE OF SERVICE: 01/30/21 Case Management Discharge Planning Summary COMMENTS ENTERED DATE: 01/28/21 12:18 CT COMMENT TYPE: Discharge Planning REVIEWER: Agustin Saunders CM met with patient to complete DC plan and to evaluate needs. Patient lives independently with his spouse, Hannah Crowley, . Patient stated that his home is safe and has electricity and running water. Patient stated that he is able to enter and move about his home without difficulty. Patient stated that he has no problems paying for medications and he fills his medications at both [facility] on [address] and [facility] in [place]. Patient stated that his primary care physician is Dr. Delvalle. At discharge, the patient plans to return home and feels this is a safe discharge. CM discussed availability of home health, rehab services, and medical equipment. Patient declined SNF, IPR, and DME but would like to resume [facility] health. [facility] stated that the patient is current. Clinical Documents faxed to home health agency. Patient voiced no other needs at this time and is satisfied with DC plan. Transportation provider at discharge will be with his spouse, Hannah Crowley. DC IMM delivered, explained, signed by the patient, and placed in chart. Signed form also left with the patient. CM will continue to follow and will assist as needed with dc plans/needs. DCP REVIEW SUMMARY ANTICIPATED D/C DATE: EXPECTED LOS : CASE STATUS: DCP Initiated INITIAL REVIEW: 01/22/2021 INITIAL REVIEWER: Agustin Saunders FINAL DISCHARGE DISPOSITION: : FINAL REVIEWER: FINAL REVIEW DATE: DCP Focus Questions & Answers DCP Evaluation QUESTION: ANSWER Patient and/or caregiver agree upon recommended discharge plan? : Yes Patient's current cognitive status: : *Oriented to person, place, situation, time and present Patient's ability to cope with chronic illness : d. No chronic illness Patient gives permission to discuss discharge plans with: (name, relationship and number) : spouse, Hannah Crowley, Family / Caregiver's ability to cope with chronic illness: : a. Adequate (ability to meet patient's medical needs, ensures patient attends medical appts.) Does the patient have the ability to pay for or attain post discharge needs / services? : Yes Functional screen assessment: : Basic needs can adequately be met by self Family / Caregiver's ability to cope with chronic illness: : a. Adequate (ability to meet patient's medical needs, ensures patient attends medical appts.) Physical Status: : Independent with ADL's Equipment needed for post hospitalization: : None Is there a likelihood that the patient will require additional services to return to the preadmission environment? : No Living Arrangements: : Home with Spouse/Significant Other Patient with capacity for self-care or can be cared for in same environment as prior to hospitalization? : Yes Baseline cognitive status: : *Oriented to person, place, situation, time and present Physical environment modification needed / anticipated for discharge: : No Medication Management: : Patient states can afford medications Medication Management: : Patient states can read and understand medication labels Pharmacy name(s): : both [facility] on [address] and [facility] in [place] Does Patient have transportation to get home and to follow-up medical appointments when discharged from the hospital? : Yes Would patient like to participate in any Care Coordination programs (if applicable): : Not applicable Does the patient have electricity at home? : Yes Does the patient have running water in their house? : Yes Equipment in use: : Cane - Single Leg Mental health screen: : No mental health history DCP Re-evaluation QUESTION: ANSWER Would patient like to participate in any Care Coordination programs (if applicable): : Not applicable PATIENT: JORGE CROWLEY ENCOUNTER: [id number] MEDICAL RECORD#: [id number] ADMISSION DATE: 01/22/2021 DISCHARGE DATE: 01/28/2021 ATTENDING MD: LUZMA LAWRENCE : AGE: 75 MARITAL STATUS: M DC PLAN ID: [id number] FACILITY: [facility] PRINTED ON: 01/30/21 19:33 CT All edits/amendments must be made on the electronic document DICTATION DATE: 01/30/211932 MILL RECORDER: RAFFY 01/30/211932 RPT#: [id number] DC DATE:01/28/21 STATUS: DIS IN [facility] [address] [facility] [place] [address] END OF REPORT
== END 2021-01-28 13:57 | disposition home health service (06) | DRG 378 ==
LOC: D.ER 14:43 → D.ICU 18:28 → D.M2 18:28 → D.ICU 01-23 17:37 → D.M2 01-25 20:49
PROVIDERS: Emergency Medicine; Family Medicine; Internal Medicine Gastroenterology; Thoracic Surgery (Cardiothoracic Vascular Surgery); ADMIT Family Medicine; ATTEND Family Medicine
PROC: 0W3P8ZZ Control Bleeding in Gastrointestinal Tract, Via Natural or Artificial Opening Endoscopic (ICD-10-PCS; principal; 2021-01-23 15:58)
DX: K25.0 Acute gastric ulcer with hemorrhage (principal); D62 Acute posthemorrhagic anemia; K92.1 Melena; I25.10 Atherosclerotic heart disease of native coronary artery without angina pectoris; I10 Essential (primary) hypertension; E78.5 Hyperlipidemia, unspecified; J44.9 Chronic obstructive pulmonary disease, unspecified; K21.9 Gastro-esophageal reflux disease without esophagitis; Z87.891 Personal history of nicotine dependence; Z95.1 Presence of aortocoronary bypass graft; Z79.01 Long term (current) use of anticoagulants